=== PATIENT | male | born 1945 | race Caucasian/White ===

== ENCOUNTER 2017-02-23 10:59 | Inpatient (IN) | payer OTHER ==
[2017-02-23] MEDS ORDERED: TYLENOL 325 MG TAB PO PRN (11:44)
[2017-02-23] MEDS ORDERED: ULTRAM PO PRN (11:44)
[2017-02-23] MEDS ORDERED: ZOFRAN TAB 4 MG SL PRN (11:44)
[2017-02-23] MEDS ORDERED: VISTARIL PO PRN (11:44)
[2017-02-23 12:06] LABS: BASOPHILS % (AUTO) 0.7 % (0.2-1.0); EOSINOPHILS # (AUTO) 0.1 x10^3/uL (0.0-0.2); EOSINOPHILS % (AUTO) 1.2 % (0.9-2.9); HEMATOCRIT 42.7 % (42.0-54.0); HEMOGLOBIN 14.3 g/dL (13.5-18.0); LYMPHOCYTES # (AUTO) 1.5 X10^3/uL (1.3-2.9); LYMPHOCYTES % (AUTO) 22.5 % (21.0-51.0); MEAN CORPUSCULAR HEMOGLOBIN 29.5 pg (27.0-34.0); MEAN CORPUSCULAR HGB CONC 33.5 g/dL (33.0-35.0); MEAN CORPUSCULAR VOLUME 88.2 fL (80.0-100.0); MEAN PLATELET VOLUME 9.7 fL (7.4-11.0); MONOCYTES # (AUTO) 0.7 x10^3/uL (0.3-0.8); NEUTROPHILS # (AUTO) 4.4 x10^3/uL (2.2-4.8); NEUTROPHILS % (AUTO) 64.6 % (42.0-75.0); PLATELET COUNT 143 X10^3/uL (150.0-450.0); RED BLOOD COUNT 4.83 X10^6/uL (4.7-6.0); RED CELL DISTRIBUTION WIDTH 13.4 % (11.6-16.5); WHITE BLOOD COUNT 6.8 X10^3/uL (3.6-10.0)
[2017-02-23 12:15] LABS: APPEARANCE,URINE CLEAR (CLEAR); COLOR,URINE YELLOW (YELLOW)
--- NOTE | 2017-02-23 12:15 | RAD ---
Indication: Shortness of breath . Exam: PA and lateral Comparison: None. Findings: The heart is normal. The pulmonary vessels are normal. There are postop changes along the m ediastinum and sternum. The lungs are hypoinflated with mild asymmetric elevation of the left hemidia phragm . There is gaseous distention of the bowel under the diaphragm. No effusion is seen. There are degenerative changes in the spine with several compression deformities along the lower thoracic roma on. Impression: Status post CABG surgery. Hypoinflation with asymmetric elevation of the left hemidiaphragm and mild discoid atelectasis or sca rring along the lung bases . Focal gaseous distention of the bowel along the left hemidiaphragm. Suggest a follow-up KUB, if indic ated clinically Reported By:
[2017-02-23 12:16] LABS: BILIRUBIN,URINE NEGATIVE (NEGATIVE); BLOOD/HEMOGLOBIN,URINE NEGATIVE (NEGATIVE); GLUCOSE, URINE 4+ (NEGATIVE); KETONES,URINE NEGATIVE (NEGATIVE); NITRITES,URINE NEGATIVE (NEGATIVE); PROTEIN,URINE NEGATIVE (NEGATIVE)
[2017-02-23 12:17] LABS: LEUKOCYTE ESTERASE ,URINE NEGATIVE (NEGATIVE); SERUM ACETONE NEGATIVE (NEGATIVE); UROBILINOGEN,URINE NORMAL (NORMAL)
[2017-02-23 12:21] LABS: BACTERIA,URINE NEGATIVE /HPF (NEGATIVE); RBC,URINE NONE SEEN /HPF (NEGATIVE); SQUAMOUS EPITHELIAL CELL,UR NEGATIVE /HPF (NEGATIVE)
[2017-02-23 12:44] LABS: ALANINE AMINOTRANSFERASE 22 Units/L (12-78); ALBUMIN 3.5 g/dL (3.4-5.0); ALKALINE PHOSPHATASE 99 Units/L (46-116); ASPARTATE AMINO TRANSFERASE 13 Units/L (15-37); BLOOD UREA NITROGEN 13 mg/dL (7-18); CALCIUM 9.4 mg/dL (8.5-10.1); CHLORIDE 93 mmol/L (98-107); CKMB % 8.8 % (<4); CREATINE KINASE 67 Units/L (39-308); CREATININE 0.88 mg/dL (0.70-1.30); SODIUM 129 mmol/L (136-145); TROPONIN I < 0.02 ng/mL (0-1.5); eGFR BLACK RACES > 60 (>60); eGFR NON BLACK RACES > 60 (>60)
[2017-02-23 12:47] LABS: COR NA(FOR HYPERGLY) 141 mmol/L (136-145)
[2017-02-23 12:49] LABS: CREATINE KINASE MB 5.9 ng/mL (0-4.0)
[2017-02-23] MEDS: NS 1000 ML 1,000 ML IV SCH ×2 (13:21→19:51)
[2017-02-23] MEDS: HumuLIN R SUBCUT PRN ×3 (13:22→21:21)
[2017-02-23 16:28] LABS: CRYPTOSPORIDIUM PARVUM ANTIGEN NEGATIVE (NEGATIVE); GIARDIA LAMBLIA ANTIGEN NEGATIVE (NEGATIVE); STOOL FOR WBC NEGATIVE (NEGATIVE)
[2017-02-23] MEDS: ZITHROMAX TAB 250 MG PO SCH (17:26)
[2017-02-24] MEDS: NS 1000 ML 1,000 ML IV SCH ×3 (04:27→19:35)
[2017-02-24] MEDS: HumuLIN R SUBCUT PRN ×4 (06:04→21:32)
[2017-02-24 06:21] LABS: BLOOD UREA NITROGEN 14 mg/dL (7-18); CALCIUM 8.3 mg/dL (8.5-10.1); CARBON DIOXIDE 28.6 mmol/L (21-32); CHLORIDE 103 mmol/L (98-107); COR NA(FOR HYPERGLY) 141 mmol/L (136-145); CREATININE 0.65 mg/dL (0.70-1.30); SODIUM 137 mmol/L (136-145); eGFR BLACK RACES > 60 (>60); eGFR NON BLACK RACES > 60 (>60)
[2017-02-24 07:03] LABS: ABG ALLEN TEST POS; ABG BASE EXCESS 4.3 mmol/L (-2.0-2.0); ABG HCO3 29.8 mmol/L (22-26)
[2017-02-24] MEDS: ZITHROMAX TAB 250 MG PO SCH (08:10)
[2017-02-24] MEDS ORDERED: FLUVIRIN IM ONE ×2 (09:43→14:52)
[2017-02-24 09:57] VITALS: BMI 20.7
--- NOTE | 2017-02-24 14:49 | DR.H&P ---
H&P - History & Physical for Day of: H&P Date: 02/23/17 - Chief Complaint Chief Complaint: WEAKNESS, DIARRHEA, POOR APPETITE, ELEVATED BLOOD SUGAR - Allergies Allergies/Adverse Reactions: Allergies Allergy/AdvReac Type Severity Reaction Status Date / Time celecoxib [From Celebrex] Allergy Verified 02/23/17 12:10 - History of Present Illness History of Present Illness: patient is a 71-year-old white male who was a direct admit from Dr. Tesfaye's [place] office when he presented with complaints of generalized weakness, elevated glucose and GI symptoms including nausea and diarrhea for several days. Patient has a past medical history of COPD, high blood pressure, and osteoarthritis. Plan to consult case management for assisted living placement after resolution of acute illness. Plan to resume patient's home medications. - Past Medical History Past Medical History: Arthritis, Coronary Artery Disease, Diabetes, Hypertension - Past Surgical History Surgical History: Appendectomy - Family History Family Medical History: PR, Coronary Artery Disease, Hypertension - Social History Does patient currently use any type of tobacco product: No Have you used tobacco products in the last 12 months: No Type of Tobacco Use: None Does any household member use tobacco: No Alcohol Use: None Drug Use: None - Medications Home Medications: No Known Home Medications See Protocol XX PRN PRN 02/23/17 [History Confirmed ] - Review of Systems Constitutional: Chills, Weakness Eyes: No Symptoms Reported ENT: No Symptoms Reported Respiratory: Cough Cardiovascular: No Symptoms Reported Gastrointestinal: Nausea, Abdominal Pain Genitourinary: No Symptoms Reported Musculoskeletal: Back Pain, Leg Pain Skin: No Symptoms Reported Neurological: Weakness - Physical Exam Vital Signs: Temperature 97.1 F Pulse Rate [Bilateral Radial] 75 Respiratory Rate 17 Blood Pressure [Left Arm] 114/72 O2 Sat by Pulse Oximetry 95 Oriented: Normal Eyes: Normal Ear: Normal Nose: Normal Throat: Normal Respiratory: RLL Exp. Wheeze, LLL Exp. Wheeze Cardiovascular: Normal : Normal Auscultation: Bowel Sounds: Normal Palpation: Normal Tenderness: Normal Skin: Decreased Turgur Musculoskeletal: Back:Lumbar Psychiatric: Normal Mood Description: Calm Speech Pattern: Clear, Appropriate - Assessment/Plan (1) Weakness generalized Status: Acute Plan: ADMIT, BLOOD AND URINE CULTURES. IV HYDRATION, ADMISSION LABS CBC CMP. BLOOD SUGAR CONTROL. BP MONITORING, OBTAIN HOME MEDICATION LIST. CASE MANAGEMENT CONSULT (2) COPD (chronic obstructive pulmonary disease) Status: Acute (3) Diabetes Status: Acute (4) Diarrhea Status: Acute (5) Hyperglycemia Status: Acute
--- NOTE | 2017-02-24 14:54 | PCM.PROG ---
Progress Note - Progress Note for Day of Date: 02/24/17 - Subjective Subjective: patient is a 71-year-old white male who was admitted one day ago with acute weakness and GI illness. Patient had positive stool cultures for Campylobacter. Patient is currently on Zithromax antibiotics. Patient also was noted to have elevated glucose levels which have gradually improved. Patient is being covered with sliding scale insulin as well as gentle hydration. We will consult respiratory due to patient's lower expiratory wheezes. We will continue to monitor blood pressure, repeat a.m. labs and chest x-ray. - Past Medical Family Social History Past Med/Fam/Surg Hx: No changes since H&P Allergies: Allergies celecoxib [From Celebrex] Allergy (Verified 02/23/17 12:10) - Review of Systems ROS: No change since H&P - Vital Signs and I&O's Vital Signs: Temperature 97.1 F Pulse Rate [Bilateral Radial] 72 Respiratory Rate 15 Blood Pressure [Left Arm] 172/78 O2 Sat by Pulse Oximetry 94 Intake and Output: Intake & Output 02/22/17 02/23/17 02/24/17 02/25/17 11:59 11:59 11:59 11:59 Intake Total 2800 1400 Output Total 1900 425 Balance 900 975 - Physical Exam Oriented: Normal Eyes: Normal Ear: Normal Nose: Normal Throat: Normal Respiratory: Diminished, Wheezes Cardiovascular: Normal : Normal Auscultation: Bowel Sounds: Normal Tenderness: Normal Skin: Decreased Turgur Musculoskeletal: Back:Lumbar Psychiatric: Normal Mood Description: Calm Speech Pattern: Clear, Appropriate - Laboratory and Diagnostics Result Diagrams: 02/23/17 11:15 02/24/17 04:55 Labs: 02/23/17 15:31 Stool Stool Culture - Preliminary Campylobacter Species 02/23/17 15:31 Stool - Final 02/23/17 11:15 Urine,Clean Catch Urine Culture - Preliminary Laboratory WBC 6.8 X10^3/uL (3.6-10.0) 02/23/17 11:15 RBC 4.83 X10^6/uL (4.7-6.0) 02/23/17 11:15 Hgb 14.3 g/dL (13.5-18.0) 02/23/17 11:15 Hct 42.7 % (42.0-54.0) 02/23/17 11:15 MCV 88.2 fL (80.0-100.0) 02/23/17 11:15 MCH 29.5 pg (27.0-34.0) 02/23/17 11:15 MCHC 33.5 g/dL (33.0-35.0) 02/23/17 11:15 RDW 13.4 % (11.6-16.5) 02/23/17 11:15 Plt Count 143 X10^3/uL (150.0-450.0) L 02/23/17 11:15 MPV 9.7 fL (7.4-11.0) 02/23/17 11:15 Neut % 64.6 % (42.0-75.0) 02/23/17 11:15 Lymph % 22.5 % (21.0-51.0) 02/23/17 11:15 [place] % 11.0 % (0.0-13.0) 02/23/17 11:15 Eos % 1.2 % (0.9-2.9) 02/23/17 11:15 Baso % 0.7 % (0.2-1.0) 02/23/17 11:15 Neut # 4.4 x10^3/uL (2.2-4.8) 02/23/17 11:15 Lymph # 1.5 X10^3/uL (1.3-2.9) 02/23/17 11:15 [place] # 0.7 x10^3/uL (0.3-0.8) 02/23/17 11:15 Eos # 0.1 x10^3/uL (0.0-0.2) 02/23/17 11:15 Baso # 0.0 X10^3/uL (0.0-0.1) 02/23/17 11:15 Absolute Nucleated RBC 0.0 /100WBC 02/23/17 11:15 Sample Site Rrad 02/24/17 06:41 ABG pH 7.410 (7.35-7.45) 02/24/17 06:41 ABG pCO2 47.0 mmHg (35.0-45.0) H 02/24/17 06:41 ABG pO2 71.0 mmHg (80.0-100.0) L 02/24/17 06:41 ABG HCO3 29.8 mmol/L (22-26) H 02/24/17 06:41 ABG O2 Saturation 94.0 % (90-100) 02/24/17 06:41 ABG Base Excess 4.3 mmol/L (-2.0-2.0) H 02/24/17 06:41 Cesario Test Pos 02/24/17 06:41 A-a Gradient 20.0 mmHg 02/24/17 06:41 FiO2 21.000 02/24/17 06:41 Blood Gas Comments [place] abg well-mtf 02/24/17 06:41 Sodium 137 mmol/L (136-145) 02/24/17 04:55 Corrected Sodium 141 mmol/L (136-145) 02/24/17 04:55 Potassium 3.5 mmol/L (3.5-5.1) 02/24/17 04:55 Chloride 103 mmol/L (98-107) 02/24/17 04:55 Carbon Dioxide 28.6 mmol/L (21-32) 02/24/17 04:55 BUN 14 mg/dL (7-18) 02/24/17 04:55 Creatinine 0.65 mg/dL (0.70-1.30) L 02/24/17 04:55 Est GFR (MDRD) Af Amer > 60 (>60) 02/24/17 04:55 Est GFR (MDRD) Non-Af > 60 (>60) 02/24/17 04:55 Glucose 268 mg/dL (65-99) H 02/24/17 04:55 POC Glucose (mg/dL) 335 mg/dL (65-99) H 02/24/17 11:47 Calcium 8.3 mg/dL (8.5-10.1) L 02/24/17 04:55 Corrected Calcium TNP 02/23/17 11:15 Total Bilirubin 0.40 mg/dL (0.2-1.0) 02/23/17 11:15 AST 13 Units/L (15-37) L 02/23/17 11:15 ALT 22 Units/L (12-78) 02/23/17 11:15 Alkaline Phosphatase 99 Units/L (46-116) 02/23/17 11:15 Creatine Kinase 67 Units/L (39-308) 02/23/17 11:15 CK-MB (CK-2) 5.9 ng/mL (0-4.0) H* 02/23/17 11:15 CK/CKMB % Calc 8.8 % (<4) 02/23/17 11:15 Troponin I < 0.02 ng/mL (0-1.5) 02/23/17 11:15 Total Protein 7.0 g/dL (6.4-8.2) 02/23/17 11:15 Albumin 3.5 g/dL (3.4-5.0) 02/23/17 11:15 Globulin 3.5 g/dL (2.5-4.5) 02/23/17 11:15 Albumin/Globulin Ratio 1.0 Ratio (1.1-2.1) L 02/23/17 11:15 Specimen Type Clean catch urine 02/23/17 11:15 Urine Color Yellow (YELLOW) 02/23/17 11:15 Urine Appearance Clear (CLEAR) 02/23/17 11:15 Urine pH 5.0 (5.0 - 8.0) 02/23/17 11:15 Ur Specific [place] 1.010 (1.000-1.030) 02/23/17 11:15 Urine Protein Negative (NEGATIVE) 02/23/17 11:15 Urine Glucose (UA) 4+ (NEGATIVE) 02/23/17 11:15 Urine Ketones Negative (NEGATIVE) 02/23/17 11:15 Urine Occult Blood Negative (NEGATIVE) 02/23/17 11:15 Urine Nitrite Negative (NEGATIVE) 02/23/17 11:15 Urine Bilirubin Negative (NEGATIVE) 02/23/17 11:15 Urine Urobilinogen Normal (NORMAL) 02/23/17 11:15 Ur Leukocyte Esterase Negative (NEGATIVE) 02/23/17 11:15 Urine RBC None seen /HPF (NEGATIVE) 02/23/17 11:15 Urine WBC None seen /HPF (NEGATIVE) 02/23/17 11:15 Ur Squamous Epith Cells Negative /HPF (NEGATIVE) 02/23/17 11:15 Urine Bacteria Negative /HPF (NEGATIVE) 02/23/17 11:15 Ur Culture Indicated? Yes/culture set up 02/23/17 11:15 Stool Description 5g,brown,formed 02/23/17 15:31 Stl Occult Blood (IFOB) Negative (NEGATIVE) 02/23/17 15:31 Stool for White Cells Negative (NEGATIVE) 02/23/17 15:31 Acetone, Semi-Quant Negative (NEGATIVE) 02/23/17 11:15 Cryptosporid parvum Ag Negative (NEGATIVE) 02/23/17 15:31 E. histolytica Antigen Negative (NEGATIVE) 02/23/17 15:31 Giardia lamblia Ag Negative (NEGATIVE) 02/23/17 15:31 - Plan (1) Weakness generalized Status: Acute Plan: BLOOD AND URINE CULTURES PENDING. IV HYDRATION, ADMISSION LABS CBC CMP. BLOOD SUGAR CONTROL. BP MONITORING, OBTAIN HOME MEDICATION LIST. CASE MANAGEMENT CONSULT (2) COPD (chronic obstructive pulmonary disease) Status: Acute (3) Diabetes Status: Acute (4) Diarrhea Status: Acute Qualifiers: Diarrhea type: infectious Qualified Code(s): A09 - Infectious gastroenteritis and colitis, unspecified Plan: ZITHROMAX (5) Hyperglycemia Status: Acute (6) UTI (urinary tract infection) Status: Acute Plan: rocephin iv, culture pending
[2017-02-24] MEDS: ROCEPHIN VIAL 1 GM 1 GM in NS 100 ML IV 100 ML IV SCH (15:41)
[2017-02-25] MEDS: HumuLIN R SUBCUT PRN ×4 (00:08→21:17)
[2017-02-25 06:12] LABS: BASOPHILS # (AUTO) 0.1 X10^3/uL (0.0-0.1); BASOPHILS % (AUTO) 0.8 % (0.2-1.0); EOSINOPHILS # (AUTO) 0.1 x10^3/uL (0.0-0.2); EOSINOPHILS % (AUTO) 1.7 % (0.9-2.9); HEMATOCRIT 37.1 % (42.0-54.0); HEMOGLOBIN 12.7 g/dL (13.5-18.0); LYMPHOCYTES # (AUTO) 2.5 X10^3/uL (1.3-2.9); LYMPHOCYTES % (AUTO) 35.6 % (21.0-51.0); MEAN CORPUSCULAR HEMOGLOBIN 29.5 pg (27.0-34.0); MEAN CORPUSCULAR HGB CONC 34.3 g/dL (33.0-35.0); MEAN CORPUSCULAR VOLUME 85.9 fL (80.0-100.0); MEAN PLATELET VOLUME 9.1 fL (7.4-11.0); MONOCYTES # (AUTO) 0.6 x10^3/uL (0.3-0.8); NEUTROPHILS # (AUTO) 3.8 x10^3/uL (2.2-4.8); NEUTROPHILS % (AUTO) 52.9 % (42.0-75.0); PLATELET COUNT 132 X10^3/uL (150.0-450.0); RED BLOOD COUNT 4.32 X10^6/uL (4.7-6.0); RED CELL DISTRIBUTION WIDTH 13.2 % (11.6-16.5); WHITE BLOOD COUNT 7.1 X10^3/uL (3.6-10.0)
[2017-02-25 06:39] LABS: ALANINE AMINOTRANSFERASE 21 Units/L (12-78); ALBUMIN 2.6 g/dL (3.4-5.0); ALKALINE PHOSPHATASE 67 Units/L (46-116); ASPARTATE AMINO TRANSFERASE 14 Units/L (15-37); BLOOD UREA NITROGEN 11 mg/dL (7-18); CALCIUM 8.4 mg/dL (8.5-10.1); CHLORIDE 108 mmol/L (98-107); COR CA(FOR HYPOALB) 9.5 mg/dL (8.5-10.1); CREATININE 0.52 mg/dL (0.70-1.30); SODIUM 142 mmol/L (136-145); TOTAL PROTEIN 5.5 g/dL (6.4-8.2); eGFR BLACK RACES > 60 (>60); eGFR NON BLACK RACES > 60 (>60)
[2017-02-25] MEDS: NS 1000 ML 1,000 ML IV SCH ×3 (07:03→21:06)
[2017-02-25] MEDS ORDERED: K-LYTE EFFERVESCENT PO PRN (07:05)
[2017-02-25] MEDS ORDERED: POTASSIUM CHL 40 MEQ/NS 0.45% 500 ML IV PRN (07:05)
[2017-02-25] MEDS ORDERED: POTASSIUM CHL 60 MEQ/NS 0.45% 500 ML IV PRN (07:05)
[2017-02-25] MEDS ORDERED: K-RIDER 10 MEQ/NS 100 ML 10 MEQ/100 ML BAG IV PRN (07:05)
[2017-02-25] MEDS ORDERED: MAGNESIUM SULFATE 1 GM/100 mL PREMIX 1 GM/100 ML BAG IV PRN (07:05)
[2017-02-25] MEDS ORDERED: POTASSIUM CHLORIDE LIQ 20 MEQ UDC PO PRN (07:05)
--- NOTE | 2017-02-25 07:22 | RAD ---
HISTORY: Shortness of breath Study: Single view of the chest. Comparison: 02/23/2017 Findings: The cardiomediastinal silhouette is normal. New, small right apical pneumothorax. Osseous structures demonstrate no acute abnormality. Chronic elevation of left hemidiaphragm IMPRESSION: 1. New a small apical right pneumothorax. Reported By:
[2017-02-25] MEDS: ROCEPHIN VIAL 1 GM 1 GM in NS 100 ML IV 100 ML IV SCH (09:20)
[2017-02-25] MEDS: ZITHROMAX TAB 250 MG PO SCH (09:20)
--- NOTE | 2017-02-25 15:15 | CT ---
CT CHEST WITH IV CONTRAST HISTORY: Concern for right-sided pneumonia Comparison: Chest x-ray 02/25/2017 Technique: Multiple axial images of the chest were obtained from the thoracic inlet to the upper abdo men after the administration of IV contrast.Dose reduction techniques including Automated Exposure Co ntrol (AEC) and adjustment of mA and kV were utlized. Findings: The heart is normal in size. No pericardial effusion. Ascending aorta measures 4.3 cm No suspicious m ediastinal or axillary lymph nodes. Although not optimized to detect pulmonary embolism, no large leroy tral pulmonary emboli are seen. No focal consolidations, or pneumothorax. Trace left pleural effusion. Streaky atelectasis involving the bilateral lung bases. Chronic elevation of the left hemidiaphragm Airways are patent. No suspicio us pulmonary nodules or masses. Images of the upper abdomen demonstrate diffuse mesenteric edema with edema particular focus in the r egion of the pancreas. Compression deformities of T11 and T12. Correlate with symptoms. There is some sclerosis involving th en vertebral bodies. IMPRESSION: 1. No acute cardiopulmonary abnormality. The finding on recent chest x-ray was likely secondary to o verlapping structures. 2. No definite pneumonia. 3. Aneurysmal dilatation of the ascending aorta. 4. Diffuse mesenteric edema more focally in the region of the pancreas. Correlate with lipase levels. 5. Compression deformities of the thoracic spine as above. Correlate with symptoms as acuity cannot b e ruled out. Reported By:
[2017-02-25] MEDS: MAG-OX TAB PO PRN (16:23)
[2017-02-25] MEDS ORDERED: CATAPRES TAB 0.1 MG PO ONE (21:26)
[2017-02-26] MEDS: NS 1000 ML 1,000 ML IV SCH ×4 (05:36→20:20)
[2017-02-26] MEDS: HumuLIN R SUBCUT PRN ×4 (06:35→21:10)
[2017-02-26 08:28] LABS: BASOPHILS % (AUTO) 0.4 % (0.2-1.0); EOSINOPHILS # (AUTO) 0.1 x10^3/uL (0.0-0.2); EOSINOPHILS % (AUTO) 1.7 % (0.9-2.9); HEMATOCRIT 37.5 % (42.0-54.0); HEMOGLOBIN 12.8 g/dL (13.5-18.0); LYMPHOCYTES # (AUTO) 1.5 X10^3/uL (1.3-2.9); LYMPHOCYTES % (AUTO) 26.2 % (21.0-51.0); MEAN CORPUSCULAR HEMOGLOBIN 29.8 pg (27.0-34.0); MEAN CORPUSCULAR HGB CONC 34.2 g/dL (33.0-35.0); MEAN CORPUSCULAR VOLUME 87.2 fL (80.0-100.0); MEAN PLATELET VOLUME 9.8 fL (7.4-11.0); MONOCYTES # (AUTO) 0.4 x10^3/uL (0.3-0.8); MONOCYTES % (AUTO) 7.9 % (0.0-13.0); NEUTROPHILS # (AUTO) 3.6 x10^3/uL (2.2-4.8); NEUTROPHILS % (AUTO) 63.8 % (42.0-75.0); PLATELET COUNT 127 X10^3/uL (150.0-450.0); RED CELL DISTRIBUTION WIDTH 13.3 % (11.6-16.5); WHITE BLOOD COUNT 5.6 X10^3/uL (3.6-10.0)
[2017-02-26 08:33] LABS: ALANINE AMINOTRANSFERASE 23 Units/L (12-78); ALBUMIN 2.6 g/dL (3.4-5.0); ALKALINE PHOSPHATASE 84 Units/L (46-116); ASPARTATE AMINO TRANSFERASE 19 Units/L (15-37); BLOOD UREA NITROGEN 11 mg/dL (7-18); CALCIUM 8.5 mg/dL (8.5-10.1); CARBON DIOXIDE 28.7 mmol/L (21-32); CHLORIDE 101 mmol/L (98-107); COR CA(FOR HYPOALB) 9.6 mg/dL (8.5-10.1); COR NA(FOR HYPERGLY) 143 mmol/L (136-145); CREATININE 0.61 mg/dL (0.70-1.30); SODIUM 135 mmol/L (136-145); TOTAL PROTEIN 5.6 g/dL (6.4-8.2); eGFR BLACK RACES > 60 (>60); eGFR NON BLACK RACES > 60 (>60)
[2017-02-26] MEDS: ROCEPHIN VIAL 1 GM 1 GM in NS 100 ML IV 100 ML IV SCH (09:13)
[2017-02-26] MEDS: ZITHROMAX TAB 250 MG PO SCH (09:13)
[2017-02-26] MEDS: MAG-OX TAB PO PRN (12:21)
[2017-02-26] MEDS: ZESTRIL TAB 10 MG PO SCH (19:07)
[2017-02-26] MEDS: AMARYL TAB 4 MG PO SCH (19:07)
[2017-02-26] MEDS: SNACK - Diabetic Appropriate PO SCH (20:06)
[2017-02-27] MEDS: NS 1000 ML 1,000 ML IV SCH ×4 (05:12→22:25)
[2017-02-27] MEDS: HumuLIN R SUBCUT PRN ×4 (05:45→21:51)
[2017-02-27 06:23] LABS: BASOPHILS # (AUTO) 0.1 X10^3/uL (0.0-0.1); BASOPHILS % (AUTO) 0.9 % (0.2-1.0); EOSINOPHILS # (AUTO) 0.1 x10^3/uL (0.0-0.2); HEMATOCRIT 39.5 % (42.0-54.0); HEMOGLOBIN 13.5 g/dL (13.5-18.0); LYMPHOCYTES # (AUTO) 1.7 X10^3/uL (1.3-2.9); LYMPHOCYTES % (AUTO) 28.5 % (21.0-51.0); MEAN CORPUSCULAR HEMOGLOBIN 29.6 pg (27.0-34.0); MEAN CORPUSCULAR HGB CONC 34.1 g/dL (33.0-35.0); MEAN CORPUSCULAR VOLUME 86.8 fL (80.0-100.0); MEAN PLATELET VOLUME 9.4 fL (7.4-11.0); MONOCYTES # (AUTO) 0.5 x10^3/uL (0.3-0.8); MONOCYTES % (AUTO) 8.1 % (0.0-13.0); NEUTROPHILS # (AUTO) 3.6 x10^3/uL (2.2-4.8); NEUTROPHILS % (AUTO) 60.5 % (42.0-75.0); PLATELET COUNT 130 X10^3/uL (150.0-450.0); RED BLOOD COUNT 4.55 X10^6/uL (4.7-6.0); RED CELL DISTRIBUTION WIDTH 13.2 % (11.6-16.5)
[2017-02-27 06:35] LABS: ALANINE AMINOTRANSFERASE 22 Units/L (12-78); ALBUMIN 2.5 g/dL (3.4-5.0); ALKALINE PHOSPHATASE 75 Units/L (46-116); ASPARTATE AMINO TRANSFERASE 16 Units/L (15-37); BLOOD UREA NITROGEN 12 mg/dL (7-18); CALCIUM 8.5 mg/dL (8.5-10.1); CARBON DIOXIDE 30.6 mmol/L (21-32); CHLORIDE 102 mmol/L (98-107); COR CA(FOR HYPOALB) 9.7 mg/dL (8.5-10.1); COR NA(FOR HYPERGLY) 143 mmol/L (136-145); CREATININE 0.55 mg/dL (0.70-1.30); MAGNESIUM 1.6 mg/dL (1.7-2.9); SODIUM 138 mmol/L (136-145); TOTAL PROTEIN 5.7 g/dL (6.4-8.2); eGFR BLACK RACES > 60 (>60); eGFR NON BLACK RACES > 60 (>60)
[2017-02-27] MEDS: ZITHROMAX TAB 250 MG PO SCH (08:18)
[2017-02-27] MEDS: ZESTRIL TAB 10 MG PO SCH (08:19)
[2017-02-27] MEDS: ROCEPHIN VIAL 1 GM 1 GM in NS 100 ML IV 100 ML IV SCH (08:19)
[2017-02-27] MEDS ORDERED: GLUCOPHAGE ONE ×2 (08:20→16:56)
--- NOTE | 2017-02-27 13:39 | PCM.PROG ---
Progress Note - Progress Note for Day of Date: 02/27/17 - Subjective Subjective: patient is a 71-year-old white male who was admitted one day ago with acute weakness and GI illness. Patient had positive stool cultures for Campylobacter. Patient is currently on Zithromax antibiotics. patient states diarrhea has improved no bowel movements today. Patient also was noted to have elevated glucose levels which have gradually improved. Patient is being treated with by mouth Amaryl and metformin with elevated sugars greater than 200 continued. Plan to increase dose of metformin. Consult physical therapy and case management for discussed rehabilitation placement at [facility]. - Past Medical Family Social History Past Med/Fam/Surg Hx: No changes since H&P Allergies: Allergies celecoxib [From Celebrex] Allergy (Verified 02/23/17 12:10) - Review of Systems ROS: No change since H&P - Vital Signs and I&O's Vital Signs: Temperature 97 F Pulse Rate [Bilateral Radial] 77 Pulse Rate 79 Respiratory Rate 15 Blood Pressure [Right Arm] 144/77 Blood Pressure [Left Arm] 142/94 O2 Sat by Pulse Oximetry 95 Intake and Output: Intake & Output 02/25/17 02/26/17 02/27/17 02/28/17 11:59 11:59 11:59 11:59 Intake Total 4766 5069 3466 Output Total 2725 3200 3600 Balance 2041 1869 -134 - Physical Exam Oriented: Normal Eyes: Normal Ear: Normal Nose: Normal Throat: Normal Respiratory: Diminished, Wheezes Cardiovascular: Normal : Normal Auscultation: Bowel Sounds: Normal Tenderness: Normal Skin: Decreased Turgur Musculoskeletal: Back:Lumbar Psychiatric: Normal Mood Description: Calm Speech Pattern: Clear, Appropriate, Unclear - Laboratory and Diagnostics Result Diagrams: 02/27/17 05:21 02/27/17 05:21 Labs: 02/23/17 11:52 Blood Blood Culture - Preliminary 02/23/17 11:15 Blood Blood Culture - Preliminary 02/23/17 15:31 Stool Stool Culture - Final Campylobacter Species 02/23/17 15:31 Stool - Final 02/23/17 11:15 Urine,Clean Catch Urine Culture - Final Laboratory WBC 6.0 X10^3/uL (3.6-10.0) 02/27/17 05:21 RBC 4.55 X10^6/uL (4.7-6.0) L 02/27/17 05:21 Hgb 13.5 g/dL (13.5-18.0) 02/27/17 05:21 Hct 39.5 % (42.0-54.0) L 02/27/17 05:21 MCV 86.8 fL (80.0-100.0) 02/27/17 05:21 MCH 29.6 pg (27.0-34.0) 02/27/17 05:21 MCHC 34.1 g/dL (33.0-35.0) 02/27/17 05:21 RDW 13.2 % (11.6-16.5) 02/27/17 05:21 Plt Count 130 X10^3/uL (150.0-450.0) L 02/27/17 05:21 MPV 9.4 fL (7.4-11.0) 02/27/17 05:21 Neut % 60.5 % (42.0-75.0) 02/27/17 05:21 Lymph % 28.5 % (21.0-51.0) 02/27/17 05:21 [place] % 8.1 % (0.0-13.0) 02/27/17 05:21 Eos % 2.0 % (0.9-2.9) 02/27/17 05:21 Baso % 0.9 % (0.2-1.0) 02/27/17 05:21 Neut # 3.6 x10^3/uL (2.2-4.8) 02/27/17 05:21 Lymph # 1.7 X10^3/uL (1.3-2.9) 02/27/17 05:21 [place] # 0.5 x10^3/uL (0.3-0.8) 02/27/17 05:21 Eos # 0.1 x10^3/uL (0.0-0.2) 02/27/17 05:21 Baso # 0.1 X10^3/uL (0.0-0.1) 02/27/17 05:21 Absolute Nucleated RBC 0.0 /100WBC 02/27/17 05:21 Sample Site Rrad 02/24/17 06:41 ABG pH 7.410 (7.35-7.45) 02/24/17 06:41 ABG pCO2 47.0 mmHg (35.0-45.0) H 02/24/17 06:41 ABG pO2 71.0 mmHg (80.0-100.0) L 02/24/17 06:41 ABG HCO3 29.8 mmol/L (22-26) H 02/24/17 06:41 ABG O2 Saturation 94.0 % (90-100) 02/24/17 06:41 ABG Base Excess 4.3 mmol/L (-2.0-2.0) H 02/24/17 06:41 Cesario Test Pos 02/24/17 06:41 A-a Gradient 20.0 mmHg 02/24/17 06:41 FiO2 21.000 02/24/17 06:41 Blood Gas Comments [place] abg well-mtf 02/24/17 06:41 Sodium 138 mmol/L (136-145) 02/27/17 05:21 Corrected Sodium 143 mmol/L (136-145) 02/27/17 05:21 Potassium 4.0 mmol/L (3.5-5.1) 02/27/17 05:21 Chloride 102 mmol/L (98-107) 02/27/17 05:21 Carbon Dioxide 30.6 mmol/L (21-32) 02/27/17 05:21 BUN 12 mg/dL (7-18) 02/27/17 05:21 Creatinine 0.55 mg/dL (0.70-1.30) L 02/27/17 05:21 Est GFR (MDRD) Af Amer > 60 (>60) 02/27/17 05:21 Est GFR (MDRD) Non-Af > 60 (>60) 02/27/17 05:21 Glucose 294 mg/dL (65-99) H 02/27/17 05:21 POC Glucose (mg/dL) 290 mg/dL (65-99) H 02/27/17 10:57 Calcium 8.5 mg/dL (8.5-10.1) 02/27/17 05:21 Corrected Calcium 9.7 mg/dL (8.5-10.1) 02/27/17 05:21 Magnesium 1.6 mg/dL (1.7-2.9) L 02/27/17 05:21 Total Bilirubin 0.30 mg/dL (0.2-1.0) 02/27/17 05:21 AST 16 Units/L (15-37) 02/27/17 05:21 ALT 22 Units/L (12-78) 02/27/17 05:21 Alkaline Phosphatase 75 Units/L (46-116) 02/27/17 05:21 Creatine Kinase 67 Units/L (39-308) 02/23/17 11:15 CK-MB (CK-2) 5.9 ng/mL (0-4.0) H* 02/23/17 11:15 CK/CKMB % Calc 8.8 % (<4) 02/23/17 11:15 Troponin I < 0.02 ng/mL (0-1.5) 02/23/17 11:15 Total Protein 5.7 g/dL (6.4-8.2) L 02/27/17 05:21 Albumin 2.5 g/dL (3.4-5.0) L 02/27/17 05:21 Globulin 3.2 g/dL (2.5-4.5) 02/27/17 05:21 Albumin/Globulin Ratio 0.8 Ratio (1.1-2.1) L 02/27/17 05:21 Specimen Type Clean catch urine 02/23/17 11:15 Urine Color Yellow (YELLOW) 02/23/17 11:15 Urine Appearance Clear (CLEAR) 02/23/17 11:15 Urine pH 5.0 (5.0 - 8.0) 02/23/17 11:15 Ur Specific [place] 1.010 (1.000-1.030) 02/23/17 11:15 Urine Protein Negative (NEGATIVE) 02/23/17 11:15 Urine Glucose (UA) 4+ (NEGATIVE) 02/23/17 11:15 Urine Ketones Negative (NEGATIVE) 02/23/17 11:15 Urine Occult Blood Negative (NEGATIVE) 02/23/17 11:15 Urine Nitrite Negative (NEGATIVE) 02/23/17 11:15 Urine Bilirubin Negative (NEGATIVE) 02/23/17 11:15 Urine Urobilinogen Normal (NORMAL) 02/23/17 11:15 Ur Leukocyte Esterase Negative (NEGATIVE) 02/23/17 11:15 Urine RBC None seen /HPF (NEGATIVE) 02/23/17 11:15 Urine WBC None seen /HPF (NEGATIVE) 02/23/17 11:15 Ur Squamous Epith Cells Negative /HPF (NEGATIVE) 02/23/17 11:15 Urine Bacteria Negative /HPF (NEGATIVE) 02/23/17 11:15 Ur Culture Indicated? Yes/culture set up 02/23/17 11:15 Stool Description 5g,brown,formed 02/23/17 15:31 Stl Occult Blood (IFOB) Negative (NEGATIVE) 02/23/17 15:31 Stool for White Cells Negative (NEGATIVE) 02/23/17 15:31 Acetone, Semi-Quant Negative (NEGATIVE) 02/23/17 11:15 Cryptosporid parvum Ag Negative (NEGATIVE) 02/23/17 15:31 E. histolytica Antigen Negative (NEGATIVE) 02/23/17 15:31 Giardia lamblia Ag Negative (NEGATIVE) 02/23/17 15:31 - Plan (1) Weakness generalized Status: Acute Plan: BLOOD AND URINE CULTURES COLLECTED ON ADMISSION. IV HYDRATION, ADMISSION LABS CBC CMP. BLOOD SUGAR CONTROL. BP MONITORING, OBTAIN HOME MEDICATION LIST. CASE MANAGEMENT CONSULT (2) COPD (chronic obstructive pulmonary disease) Status: Chronic (3) Diabetes Status: Chronic Plan: A1C, METFORMIN AMARYL (4) Diarrhea Status: Acute Qualifiers: Diarrhea type: infectious Qualified Code(s): A09 - Infectious gastroenteritis and colitis, unspecified Plan: ZITHROMAX (5) Hyperglycemia Status: Acute (6) UTI (urinary tract infection) Status: Acute Plan: rocephin iv, culture pending
[2017-02-27] MEDS: MAG-OX TAB PO PRN (14:02)
[2017-02-27] MEDS: GLUCOPHAGE PO SCH (16:54)
[2017-02-27] MEDS: AMARYL TAB 4 MG PO SCH (16:57)
[2017-02-27] MEDS ORDERED: GLUCOPHAGE PO SCH (17:00)
[2017-02-27] MEDS ORDERED: MILK OF MAGNESIA PO PRN (19:28)
[2017-02-27] MEDS ORDERED: COLACE CAP 100 MG PO PRN (19:28)
[2017-02-27] MEDS: SNACK - Diabetic Appropriate PO SCH (21:40)
[2017-02-28] MEDS ORDERED: GLUCOPHAGE ONE ×2 (06:17→16:35)
[2017-02-28 06:18] LABS: BASOPHILS # (AUTO) 0.1 X10^3/uL (0.0-0.1); BASOPHILS % (AUTO) 0.9 % (0.2-1.0); EOSINOPHILS # (AUTO) 0.1 x10^3/uL (0.0-0.2); EOSINOPHILS % (AUTO) 1.7 % (0.9-2.9); HEMATOCRIT 38.2 % (42.0-54.0); LYMPHOCYTES # (AUTO) 1.5 X10^3/uL (1.3-2.9); MEAN CORPUSCULAR HEMOGLOBIN 29.9 pg (27.0-34.0); MEAN CORPUSCULAR HGB CONC 34.1 g/dL (33.0-35.0); MEAN CORPUSCULAR VOLUME 87.7 fL (80.0-100.0); MEAN PLATELET VOLUME 9.2 fL (7.4-11.0); MONOCYTES # (AUTO) 0.5 x10^3/uL (0.3-0.8); MONOCYTES % (AUTO) 8.2 % (0.0-13.0); NEUTROPHILS # (AUTO) 3.6 x10^3/uL (2.2-4.8); NEUTROPHILS % (AUTO) 62.2 % (42.0-75.0); PLATELET COUNT 142 X10^3/uL (150.0-450.0); RED BLOOD COUNT 4.35 X10^6/uL (4.7-6.0); RED CELL DISTRIBUTION WIDTH 13.4 % (11.6-16.5); WHITE BLOOD COUNT 5.7 X10^3/uL (3.6-10.0)
[2017-02-28] MEDS: NS 1000 ML 1,000 ML IV SCH (06:19)
[2017-02-28] MEDS: HumuLIN R SUBCUT PRN ×2 (06:20→11:57)
[2017-02-28] MEDS: GLUCOPHAGE PO SCH ×2 (06:20→16:39)
--- NOTE | 2017-02-28 06:37 | RAD ---
Examination: Portable AP chest History: Cough Comparison 02/25/2017 Findings: Stable heart size, persistent widening of the upper mediastinum and left diaphragm elevatio n. No definite pneumothorax or pulmonary consolidation. Findings of sternotomy again noted. Impression: No new acute abnormality. No definite pneumothorax, pneumonia or large pleural effusion. Stable elevation left hemidiaphragm. Is Reported By:
[2017-02-28 06:54] LABS: ALANINE AMINOTRANSFERASE 25 Units/L (12-78); ALBUMIN 2.4 g/dL (3.4-5.0); ALKALINE PHOSPHATASE 72 Units/L (46-116); AMYLASE 47 Units/L (25-115); ASPARTATE AMINO TRANSFERASE 17 Units/L (15-37); BLOOD UREA NITROGEN 13 mg/dL (7-18); CALCIUM 8.5 mg/dL (8.5-10.1); CARBON DIOXIDE 29.6 mmol/L (21-32); CHLORIDE 104 mmol/L (98-107); COR CA(FOR HYPOALB) 9.8 mg/dL (8.5-10.1); COR NA(FOR HYPERGLY) 144 mmol/L (136-145); CREATININE 0.64 mg/dL (0.70-1.30); LIPASE 157 Units/L (73-393); MAGNESIUM 1.7 mg/dL (1.7-2.9); SODIUM 139 mmol/L (136-145); TOTAL PROTEIN 5.6 g/dL (6.4-8.2); eGFR BLACK RACES > 60 (>60); eGFR NON BLACK RACES > 60 (>60)
[2017-02-28] MEDS: ROCEPHIN VIAL 1 GM 1 GM in NS 100 ML IV 100 ML IV SCH (09:01)
[2017-02-28] MEDS: ZESTRIL TAB 10 MG PO SCH (09:01)
[2017-02-28] MEDS: ZITHROMAX TAB 250 MG PO SCH (09:03)
[2017-02-28 12:33] VITALS: BP 136/79
[2017-02-28] MEDS ORDERED: BUTT CREAM (COMPOUND) TOP PRN (12:51)
[2017-02-28] MEDS: AMARYL TAB 4 MG PO SCH (16:39)
== END 2017-02-28 17:55 | DRG 638 ==
LOC: OBS 10:59 → UNDOADMIN 10:59 → OBS 11:01 → ICU 11:48 → MED/SURG 02-28 09:10
PROVIDERS: ADMIT Internal Medicine; ATTEND Internal Medicine
PROC: 3E0234Z Introduction of Serum, Toxoid and Vaccine into Muscle, Percutaneous Approach (ICD-10-PCS; principal; 2017-02-24)
DX: E11.65 Type 2 diabetes mellitus with hyperglycemia (principal); R60.1 Generalized edema; I95.89 Other hypotension; R53.1 Weakness; A04.5 Campylobacter enteritis; R63.0 Anorexia; J44.9 Chronic obstructive pulmonary disease, unspecified; I10 Essential (primary) hypertension; I25.10 Atherosclerotic heart disease of native coronary artery without angina pectoris; N39.0 Urinary tract infection, site not specified; R26.89 Other abnormalities of gait and mobility; Z23 Encounter for immunization
CPT/HCPCS: 36415; 36600; 71045; 71046; 71260; 80048; 80053; 81001; 82009; 82150; 82270; 82550; 82553; 82803; 82947; 83036; 83630; 83690; 83735; 84132; 84484; 85025; 87040; 87045; 87086; 87328; 87329; 87336; 87427; 87899; 90686; 93005; 93010; 94640; A4222; Q0144; J0696; J1815

== ENCOUNTER 2020-01-28 17:53 | Inpatient (IN) ==
[2020-01-28] MEDS: SNACK - Diabetic Appropriate PO SCH (21:57)
[2020-01-28] MEDS: ZOSYN VIAL 4.5 GRAMS 4.5 G in NS 100 ML IV + SPIKE MINIBAG* 100 ML IV SCH (22:09)
[2020-01-28] MEDS: NS 1000 ML 1,000 ML IV SCH (22:09)
[2020-01-28 22:13] LABS: BASOPHILS % (AUTO) 0.2 % (0.2-1.0); EOSINOPHILS # (AUTO) 0.1 x10^3/uL (0.0-0.2); EOSINOPHILS % (AUTO) 1.6 % (0.9-2.9); HEMOGLOBIN 8.6 g/dL (13.5-18.0); LYMPHOCYTES # (AUTO) 0.7 X10^3/uL (1.3-2.9); LYMPHOCYTES % (AUTO) 7.7 % (21.0-51.0); MEAN CORPUSCULAR HEMOGLOBIN 28.5 pg (27.0-34.0); MEAN PLATELET VOLUME 8.7 fL (7.4-11.0); MONOCYTES # (AUTO) 0.9 x10^3/uL (0.3-0.8); MONOCYTES % (AUTO) 9.9 % (0.0-13.0); NEUTROPHILS # (AUTO) 7.3 x10^3/uL (2.2-4.8); NEUTROPHILS % (AUTO) 80.6 % (42.0-75.0); PLATELET COUNT 92 X10^3/uL (150.0-450.0); RED BLOOD COUNT 3.03 X10^6/uL (4.7-6.0); RED CELL DISTRIBUTION WIDTH 19.1 % (11.6-16.5)
[2020-01-28 22:23] LABS: ALANINE AMINOTRANSFERASE 10 Units/L (12-78); ALBUMIN 1.2 g/dL (3.4-5.0); ALKALINE PHOSPHATASE 60 Units/L (46-116); ASPARTATE AMINO TRANSFERASE 15 Units/L (15-37); BLOOD UREA NITROGEN 24 mg/dL (7-18); CALCIUM 7.7 mg/dL (8.5-10.1); CARBON DIOXIDE 30.5 mmol/L (21-32); CHLORIDE 105 mmol/L (98-107); COR CA(FOR HYPOALB) 9.9 mg/dL (8.5-10.1); COR NA(FOR HYPERGLY) 140 mmol/L (136-145); CREATININE 1.41 mg/dL (0.70-1.30); MAGNESIUM 1.8 mg/dL (1.7-2.9); SODIUM 139 mmol/L (136-145); TOTAL PROTEIN 4.6 g/dL (6.4-8.2); eGFR NON BLACK RACES 53 (>60)
--- NOTE | 2020-01-28 23:31 | RAD ---
STUDY: FRONTAL VIEW CHESTCOMPARISON: NoneHISTORY: SOBFINDINGS:Exam is limited due to poor inspiratory effort which can result in exaggeration of the cardiac silhouette size and pulmonary vasculature. Cardiomegaly is seen with findings suggesting moderate degree of pulmonary edema. Patient is status post midline sternotomy. There appears to be airspace disease in the left lower lung zone which may represent consolidation. No pleural effusion or pneumothorax is seen. Exam is obtained in the lordotic position. Widening of the mediastinum noted measuring 13 cm in diameter.IMPRESSION:1. Cardiomegaly is seen with findings suggesting moderate degree of pulmonary edema.2. Please note that exam is limited due to poor inspiratory effort. This can result in exaggeration of the cardiac silhouette size and pulmonary vasculature.3. There is widening of the mediastinum. This may be due to the lordotic positioning and poor inspiratory effort. However, follow-up with CT angiogram chest may be obtained if this is felt to be clinically indicated. Differential diagnosis for this imaging feature should include, but is not limited to thoracic aortic aneurysm. Please note that there are no prior studies available for comparison to assess the stability of this finding.Electronically signed by: Diomedes Pulliam (Jan 28, 2020 23:29:20)
[2020-01-28 23:47] LABS: CRYPTOSPORIDIUM PARVUM ANTIGEN NEGATIVE (NEGATIVE); GIARDIA LAMBLIA ANTIGEN NEGATIVE (NEGATIVE)
[2020-01-29 00:07] LABS: BILIRUBIN,URINE NEGATIVE (NEGATIVE); BLOOD/HEMOGLOBIN,URINE 5+ (NEGATIVE); GLUCOSE, URINE NEGATIVE (NEGATIVE); KETONES,URINE NEGATIVE (NEGATIVE); LEUKOCYTE ESTERASE ,URINE 1+ (NEGATIVE); NITRITES,URINE NEGATIVE (NEGATIVE); PROTEIN,URINE 2+ (NEGATIVE); UROBILINOGEN,URINE NORMAL (NORMAL)
[2020-01-29 00:20] LABS: COLOR,URINE AMBER (YELLOW)
[2020-01-29 00:21] LABS: AMORPHOUS SEDIMENT,UR 1+ /HPF (NEGATIVE); APPEARANCE,URINE SLIGHTLY HAZY (CLEAR); BACTERIA,URINE 2+ /HPF (NEGATIVE); HYALINE CASTS, URINE MANY /LPF (NEGATIVE); MUCUS,URINE MODERATE /HPF (NEGATIVE); SPERM,URINE FEW /HPF (NEGATIVE); SQUAMOUS EPITHELIAL CELL,UR MODERATE /HPF (NEGATIVE)
[2020-01-29] MEDS: ZOSYN VIAL 4.5 GRAMS 4.5 G in NS 100 ML IV + SPIKE MINIBAG* 100 ML IV SCH (06:07)
[2020-01-29 07:08] LABS: BASOPHILS % (AUTO) 0.2 % (0.2-1.0); EOSINOPHILS # (AUTO) 0.3 x10^3/uL (0.0-0.2); EOSINOPHILS % (AUTO) 3.9 % (0.9-2.9); HEMATOCRIT 24.5 % (42.0-54.0); LYMPHOCYTES # (AUTO) 0.8 X10^3/uL (1.3-2.9); LYMPHOCYTES % (AUTO) 9.9 % (21.0-51.0); MEAN CORPUSCULAR HEMOGLOBIN 28.7 pg (27.0-34.0); MEAN CORPUSCULAR HGB CONC 32.5 g/dL (33.0-35.0); MEAN CORPUSCULAR VOLUME 88.3 fL (80.0-100.0); MEAN PLATELET VOLUME 9.1 fL (7.4-11.0); MONOCYTES # (AUTO) 0.8 x10^3/uL (0.3-0.8); MONOCYTES % (AUTO) 9.7 % (0.0-13.0); NEUTROPHILS # (AUTO) 6.1 x10^3/uL (2.2-4.8); NEUTROPHILS % (AUTO) 76.3 % (42.0-75.0); PLATELET COUNT 87 X10^3/uL (150.0-450.0); RED BLOOD COUNT 2.77 X10^6/uL (4.7-6.0); RED CELL DISTRIBUTION WIDTH 18.7 % (11.6-16.5)
[2020-01-29 07:41] LABS: ALANINE AMINOTRANSFERASE 10 Units/L (12-78); ALBUMIN 1.1 g/dL (3.4-5.0); ALKALINE PHOSPHATASE 54 Units/L (46-116); ASPARTATE AMINO TRANSFERASE 13 Units/L (15-37); BLOOD UREA NITROGEN 25 mg/dL (7-18); CALCIUM 7.7 mg/dL (8.5-10.1); CARBON DIOXIDE 27.7 mmol/L (21-32); CHLORIDE 106 mmol/L (98-107); COR NA(FOR HYPERGLY) 140 mmol/L (136-145); CREATININE 1.35 mg/dL (0.70-1.30); SODIUM 140 mmol/L (136-145); TOTAL PROTEIN 4.1 g/dL (6.4-8.2); eGFR NON BLACK RACES 55 (>60)
[2020-01-29] MEDS ORDERED: POTASSIUM CHL 60 MEQ/NS 0.45% 500 ML IV PRN (07:51)
[2020-01-29] MEDS ORDERED: POTASSIUM CHL 40 MEQ/NS 0.45% 500 ML IV PRN (07:51)
[2020-01-29] MEDS ORDERED: PHARMACY CONSULT - VANCOMYCIN XX SCH (09:00)
[2020-01-29 09:42] LABS: LACTIC ACID 0.8 mmol/L (0.4-2.0)
[2020-01-29] MEDS: NS 1000 ML 1,000 ML IV SCH ×2 (09:47→11:23)
[2020-01-29] MEDS: K-RIDER 10 MEQ/NS 100 ML 10 MEQ/100 ML BAG IV PRN (09:47)
--- NOTE | 2020-01-29 09:49 | CT ---
HISTORYR/O SACRAL OSTEOMYELITISSTUDYLUMBAR SPINE W/O CONCOMPARISONNoneTECHNIQUEMultiple CT axial images of the lumbar spine were obtained without IV contrast. Coronal and sagittal images were reconstructed. Dose reduction techniques included Automated Exposure Control (AEC) and adjustment of mA and kV.FINDINGSThe study includes the lower T11 vertebral body to the upper S4 vertebra.No significant scoliosis. The usual lumbar lordosis is maintained. There is a compression fracture of the L2 right side vertebral body superior endplate. This could be chronic. The remaining vertebral body heights are normal. No spondylolisthesis.Small osteophytes indicate degenerative disc disease at almost every level. Only very minimal degenerative changes seen in the facets. Sacroiliac joints are unremarkable.There are no erosions in the endplates to suggest discitis. No cortical erosions in the vertebra or the sacrum to suggest osteomyelitis.Increased density in the gallbladder is only partially seen. This could be partially calcified stones or vicarious excretion of contrast. There is no hydronephrosis. No abdominal aortic aneurysm.Increased density is seen in the presacral fat. I believe this is associated with rectal wall thickening. The findings might indicate proctitis. The wall thickening and edema extends into the sigmoid colon.IMPRESSION1. No evidence for osteomyelitis or discitis2. Findings suggesting rectosigmoid colitisElectronically signed by: Frank Whittaker (Jan 29, 2020 09:47:48)
[2020-01-29] MEDS: FLAGYL IV PREMIX 500 MG BAG 500 MG/100 ML BAG IV SCH ×3 (10:22→21:39)
[2020-01-29] MEDS: VANCOMYCIN IV *PREMIX 1.25 G/250 ML BAG 1.25 G/250 ML PIGGYBACK IV SCH ×2 (12:53→22:30)
--- NOTE | 2020-01-29 14:34 | DR.H&P ---
H&P - History & Physical for Day of: H&P Date: 01/28/20 - Chief Complaint Chief Complaint: INFECTION BED SORES, DIARRHEA - History of Present Illness History of Present Illness: PT IS 74 WM ADMITTED WITH GENERALIZED WEAKNESS, DIARRHEA, INFECTED SACRAL DECUBITIS, TUNNEL WITH INCREASED DRAINAGE, SORES TO RIGHT ANKLE AND LEFT HEEL. PT HAS PMH OF HTN. PT IS BED CONFINED AT [facility] IN [place]. PT REPORTS HE HAD BEEN HAVING DIARRHEA FOR OVER A MONTH. PT DENIES ANY CHEST PAIN OR SOB. - Past Medical History Past Medical History: Arthritis, Coronary Artery Disease, Diabetes, Hypertension - Past Surgical History Surgical History: CABG/Valve Surgery, Joint Replacement - Family History Family Medical History: Coronary Artery Disease - Social History Does patient currently use any type of tobacco product: No Have you used tobacco products in the last 12 months: No Type of Tobacco Use: None Does any household member use tobacco: No Alcohol Use: None Drug Use: None - Medications Home Medications: celecoxib [From Celebrex] Allergy (Verified 02/23/17 12:10) CONTINUE taking the following medications apixaban [Eliquis] 5 mg PO BID 01/29/20 [History] clindamycin HCl 300 mg PO QID 01/29/20 [History] divalproex 500 mg PO HS 01/29/20 [History] escitalopram oxalate 10 mg PO HS 01/29/20 [History] ferrous sulfate 325 mg PO .BIDPC 01/29/20 [History] furosemide 20 mg PO DAILY 01/29/20 [History] insulin aspart U-100 [Novolog U-100 Insulin aspart] See Rx Instructions .ROUTE .COMPLEX 01/29/20 [History] pantoprazole 40 mg PO DAILYAC 01/29/20 [History] potassium chloride 40 meq PO DAILY 01/29/20 [History] rosuvastatin 20 mg PO HS 01/29/20 [History] - Review of Systems Constitutional: Weakness Eyes: No Symptoms Reported ENT: No Symptoms Reported Respiratory: No Symptoms Reported Cardiovascular: No Symptoms Reported Gastrointestinal: Diarrhea Genitourinary: Incontinence Musculoskeletal: Back Pain Skin: Wound Neurological: Weakness - Physical Exam Vital Signs: Temperature 97.4 F Pulse Rate [Left Radial] 65 Respiratory Rate 18 Blood Pressure [Right Arm] 87/51 Blood Pressure [Left Arm] 82/44 O2 Sat by Pulse Oximetry 93 Oriented: Normal Eyes: Normal Ear: Normal Nose: Normal Throat: Red, Dry Respiratory: RLL Diminished, LLL Diminished Cardiovascular: Normal : Normal Auscultation: Bowel Sounds: Normal Palpation: Normal Tenderness: Normal Skin: Decreased Turgur, Wound Musculoskeletal: Right, Left, Back:Lumbar, Motor Deficit Psychiatric: Anxiety Affect: Anxious Speech Pattern: Clear, Appropriate - Assessment/Plan (1) Decubitus ulcer of sacral region, stage 4 Status: Acute Plan: ADMIT, BLOOD CULTURES, URINE CULTURE. CXR ON ADMISSION, LACTIC ACID. VERIFY HOME MEDICATION, STOOL STUDIES. IV HYDRATION, STRICT I&OS. IV ANTIBIOTICS (2) UTI (urinary tract infection) Status: Acute (3) Diarrhea Qualifiers: Diarrhea type: infectious Qualified Code(s): A09 - Infectious gastroenteritis and colitis, unspecified Status: Acute (4) Weakness generalized Status: Acute (5) COPD (chronic obstructive pulmonary disease) Status: Chronic (6) Diabetes Status: Chronic - Allergies Allergies/Adverse Reactions: Allergies Allergy/AdvReac Type Severity Reaction Status Date / Time celecoxib [From Celebrex] Allergy Verified 02/23/17 12:10
[2020-01-29] MEDS ORDERED: NS 1000 ML 1,000 ML ONE (15:00)
[2020-01-29] MEDS ORDERED: INFeD or DEXFERRUM 25 MG in NS 100 ML IV 100 ML IV ONE (15:00)
[2020-01-29] MEDS ORDERED: OFIRMEV IV 1000 MG VIAL 1,000 MG/100 ML VIAL IV ONE (15:11)
[2020-01-29] MEDS ORDERED: FENTANYL INJ 100 mcg ONE (15:11)
[2020-01-29] MEDS ORDERED: XYLOCAINE 1 % (PLAIN) ONE (15:14)
[2020-01-29] MEDS ORDERED: DIPRIVAN VIAL ONE (15:14)
[2020-01-29] MEDS ORDERED: VERSED ONE (15:14)
[2020-01-29] MEDS ORDERED: INFeD or DEXFERRUM 975 MG in NS 500 ML IV 500 ML IV ONE (15:30)
[2020-01-29] MEDS ORDERED: ANCEF VIAL 1 GRAM ONE (15:31)
[2020-01-29] MEDS ORDERED: BETADINE SOLN ONE (15:43)
[2020-01-29] MEDS ORDERED: PHARMACY CONSULT LTC MEDICATIONS XX SCH (16:00)
[2020-01-29] MEDS ORDERED: NS 1000 ML 1,000 ML IV ONE (16:43)
[2020-01-29] MEDS ORDERED: DOPAMINE IV PREMIX 400 MG/250 ML 400 MG/250 ML BAG IV ONE (16:49)
[2020-01-29] MEDS: DOPAMINE IV PREMIX 400 MG/250 ML 400 MG/250 ML BAG IV PRN (17:02)
[2020-01-29] MEDS ORDERED: PATIENT'S HOME MEDICATION (Ferrous Sulfate 325 mg (65 mg iron) Tablet) PO SCH (17:15)
--- NOTE | 2020-01-29 17:49 | DR.UPDATE ---
H&P Update History and Physical Update: History and Physical reviewed and patient examined. Changes noted: NO Yes with the following:will place central line for vasoactive iv medication H&P Reviewed: Yes Patient was examined?: Yes Procedures (ALL) - Central Line Placement PCM.CLCO: written consent Time out performed: Yes Patient placed pm monitor/pulse ox: Yes MD prep: mask, gown, gloves, other Centrial line prep: chlorhexidine scrub, sterile drapes applied Local anesthsia used: lidocane 1% Ultrasound used for placement: Yes (right ij id'd via u/s and cannulation visualized) Central line lumen ininserted: triple Post procedure: sutured in place, good blood return, all ports aspirated, flushed,capped, sterile dressing applied Post procedure xray: tip oc catheter in good position, no pneumothorax seen Patient tolerated procedure: Yes Complications: none
--- NOTE | 2020-01-29 18:08 | RAD ---
EXAM: CHEST X-RAYHISTORY: Central line placement. Sacral decubitus ulcer. C. diff infection.TECHNIQUE: AP chest x-ray dated 01/29/2020 at 5:23 PM.COMPARISON: CXR dated 01/28/2020.FINDINGS:Note: Exam again degraded by shallow inspiratory effort.Interval appearance of a right internal jugular central venous catheter with distal tip in SVC (adequate position). Recommend careful clinical correlation to ensure venous blood return.Status post median sternotomy, presumably for CABG. There is evidence for cardiomegaly. The pulmonary vascularity and interstitial markings are diffusely prominent, consistent with mild CHF or volume overload in the appropriate clinical setting; differential diagnosis includes (but is not limited to) mild bronchitis and interstitial pneumonia in the appropriate clinical setting.There is no gross focal lung consolidation, pleural effusion, or pneumothorax seen. The visualized bony structures are within normal limits.IMPRESSION:1. Interval appearance of a right internal jugular central venous catheter with distal tip in SVC (adequate position). Recommend careful clinical correlation to ensure venous blood return.2. Findings consistent with mild to moderate CHF or volume overload in the appropriate clinical setting (with interval progression of infiltrates compared with the previous exam); DDX includes (but is not limited to) mild bronchitis and interstitial pneumonia in the appropriate clinical setting. Recommend clinical correlation and appropriate follow evaluation to ensure interval clearance as clinically warranted.Electronically signed by: Mer Delacruz (Jan 29, 2020 18:06:42)
[2020-01-29] MEDS: SNACK - Diabetic Appropriate PO SCH (20:00)
[2020-01-29] MEDS: LASIX PO SCH (21:37)
[2020-01-29] MEDS: CRESTOR TAB 10 MG PO SCH (21:38)
[2020-01-29] MEDS: K-DUR TAB 20 MEQ PO SCH (21:38)
[2020-01-29] MEDS: HEMOCYTE-PLUS PO SCH (21:48)
[2020-01-30] MEDS: NS 1000 ML 1,000 ML IV SCH ×2 (01:11→15:35)
[2020-01-30 01:13] LABS: HEMATOCRIT 31.6 % (42.0-54.0); HEMOGLOBIN 10.1 g/dL (13.5-18.0)
[2020-01-30] MEDS: FLAGYL IV PREMIX 500 MG BAG 500 MG/100 ML BAG IV SCH ×4 (03:10→20:09)
[2020-01-30 06:40] LABS: BASOPHILS # (AUTO) 0.1 X10^3/uL (0.0-0.1); BASOPHILS % (AUTO) 0.4 % (0.2-1.0); EOSINOPHILS # (AUTO) 0.1 x10^3/uL (0.0-0.2); EOSINOPHILS % (AUTO) 0.8 % (0.9-2.9); HEMOGLOBIN 9.8 g/dL (13.5-18.0); LYMPHOCYTES # (AUTO) 1.1 X10^3/uL (1.3-2.9); LYMPHOCYTES % (AUTO) 5.7 % (21.0-51.0); MEAN CORPUSCULAR HEMOGLOBIN 27.4 pg (27.0-34.0); MEAN CORPUSCULAR HGB CONC 31.6 g/dL (33.0-35.0); MEAN CORPUSCULAR VOLUME 86.8 fL (80.0-100.0); MEAN PLATELET VOLUME 8.7 fL (7.4-11.0); MONOCYTES # (AUTO) 1.4 x10^3/uL (0.3-0.8); MONOCYTES % (AUTO) 7.6 % (0.0-13.0); NEUTROPHILS % (AUTO) 85.5 % (42.0-75.0); PLATELET COUNT 109 X10^3/uL (150.0-450.0); RED BLOOD COUNT 3.57 X10^6/uL (4.7-6.0); RED CELL DISTRIBUTION WIDTH 20.5 % (11.6-16.5); WHITE BLOOD COUNT 18.7 X10^3/uL (3.6-10.0)
[2020-01-30 06:47] LABS: ALBUMIN 1.2 g/dL (3.4-5.0); CALCIUM 7.8 mg/dL (8.5-10.1); CARBON DIOXIDE 25.8 mmol/L (21-32); CREATININE 1.63 mg/dL (0.70-1.30); TOTAL PROTEIN 4.5 g/dL (6.4-8.2)
[2020-01-30 07:33] LABS: BAND NEUTROPHILS % 2 % (0-10)
[2020-01-30 07:34] LABS: ANISOCYTOSIS 1+; PLATELET MORPHOLOGY COMMENT NORMAL (NORMAL)
[2020-01-30] MEDS: LASIX PO SCH (08:38)
[2020-01-30] MEDS: K-DUR TAB 20 MEQ PO SCH (08:38)
[2020-01-30] MEDS: HEMOCYTE-PLUS PO SCH ×2 (08:38→18:14)
[2020-01-30] MEDS: VANCOMYCIN IV *PREMIX 1.25 G/250 ML BAG 1.25 G/250 ML PIGGYBACK IV SCH ×2 (08:42→22:37)
[2020-01-30] MEDS ORDERED: ELIQUIS PO SCH (09:00)
[2020-01-30] MEDS: LASIX IVP SCH ×2 (09:50→16:54)
[2020-01-30] MEDS: PROTONIX INJ 40 MG VIAL IVP SCH (09:51)
--- NOTE | 2020-01-30 10:41 | RAD ---
HISTORYCHF/POSSIBLE PULMONARY EDEMASTUDYCHEST, 1 [id number]/2020FINDINGSThe trachea is midline. There is a right IJ catheter with the tip in the SVC. Patient is status post sternotomy. There is again seen elevation of the diaphragms. There is mild distension air of the stomach in the current study. There is persistent bilateral ground-glass radiopacities slightly less denser since prior in the perihilar region. No pneumothorax. Trace effusion. No central edema.IMPRESSIONPersistent bilateral elevation of the diaphragm. Interval improvement of previously seen perihilar infiltrates in the right with persistent some ground-glass radiopacities in the right lower lobe and in the left perihilar region could represent pneumonia.Distended stomach.Electronically signed by: Marla Forrest (Jan 30, 2020 10:39:22)
[2020-01-30 10:47] VITALS: BMI 27.6
[2020-01-30] MEDS ORDERED: PHARMACY COMMENT IV NR (20:30)
[2020-01-30] MEDS: CRESTOR TAB 10 MG PO SCH (21:09)
[2020-01-30 21:24] LABS: CREATININE 1.28 mg/dL (0.70-1.30)
[2020-01-30] MEDS: SNACK - Diabetic Appropriate PO SCH (21:26)
[2020-01-30 21:58] LABS: VANCOMYCIN,TROUGH 38.8 ug/mL (15-20)
[2020-01-31] MEDS: FLAGYL IV PREMIX 500 MG BAG 500 MG/100 ML BAG IV SCH ×4 (04:20→21:30)
[2020-01-31] MEDS: NS 1000 ML 1,000 ML IV SCH ×2 (05:37→11:00)
[2020-01-31 06:57] LABS: BASOPHILS # (AUTO) 0.1 X10^3/uL (0.0-0.1); BASOPHILS % (AUTO) 0.4 % (0.2-1.0); EOSINOPHILS # (AUTO) 0.2 x10^3/uL (0.0-0.2); EOSINOPHILS % (AUTO) 1.3 % (0.9-2.9); HEMATOCRIT 25.4 % (42.0-54.0); HEMOGLOBIN 8.1 g/dL (13.5-18.0); LYMPHOCYTES # (AUTO) 1.1 X10^3/uL (1.3-2.9); LYMPHOCYTES % (AUTO) 8.3 % (21.0-51.0); MEAN CORPUSCULAR HEMOGLOBIN 27.6 pg (27.0-34.0); MEAN CORPUSCULAR HGB CONC 31.9 g/dL (33.0-35.0); MEAN CORPUSCULAR VOLUME 86.4 fL (80.0-100.0); MEAN PLATELET VOLUME 8.2 fL (7.4-11.0); MONOCYTES # (AUTO) 0.9 x10^3/uL (0.3-0.8); MONOCYTES % (AUTO) 6.4 % (0.0-13.0); NEUTROPHILS # (AUTO) 11.4 x10^3/uL (2.2-4.8); NEUTROPHILS % (AUTO) 83.6 % (42.0-75.0); PLATELET COUNT 97 X10^3/uL (150.0-450.0); RED BLOOD COUNT 2.94 X10^6/uL (4.7-6.0); RED CELL DISTRIBUTION WIDTH 20.2 % (11.6-16.5); WHITE BLOOD COUNT 13.7 X10^3/uL (3.6-10.0)
[2020-01-31 07:11] LABS: CALCIUM 7.3 mg/dL (8.5-10.1); COR CA(FOR HYPOALB) 9.7 mg/dL (8.5-10.1); CREATININE 1.66 mg/dL (0.70-1.30)
[2020-01-31 07:20] LABS: CARBON DIOXIDE 23.6 mmol/L (21-32)
[2020-01-31 07:31] LABS: ANISOCYTOSIS 1+; CRENATED RBC SLIGHT; HYPOCHROMASIA SLIGHT; PLATELET MORPHOLOGY COMMENT NORMAL (NORMAL)
[2020-01-31] MEDS: PROTONIX INJ 40 MG VIAL IVP SCH (08:17)
[2020-01-31] MEDS: HEMOCYTE-PLUS PO SCH ×2 (08:22→17:01)
[2020-01-31] MEDS: K-DUR TAB 20 MEQ PO SCH (08:22)
[2020-01-31] MEDS: LASIX PO SCH (08:23)
[2020-01-31] MEDS ORDERED: HYDROGEN PEROXIDE 3% ONE (09:28)
--- NOTE | 2020-01-31 09:31 | RAD ---
HISTORYABD DISTENTIONSTUDYKUBCOMPARISONNoneTECHNIQUETwo images of the abdomen, supine KUBFINDINGSMidline pelvic catheter likely a Higgins catheter. Borderline sized loops of small bowel in the left lower quadrant me asuring up to 2.8 cm. There is gas in the colon. Elevated left emely diaphragm. Left hip arthroplasty noted. No free air, pneumatosis or portal venous gas. No suspicious calcifications. Nonspecific 5.1 c m hyperdense round structure in the low pelvis.IMPRESSIONBorderline sized loops of small bowel in the left lower quadrant. This is nonspecific but could represent enteritis, low-grade obstruction or elaine ign gas-filled bowel loops.Nonspecific round hyperdense structure in the low pelvis may represent charisse cification.Electronically signed by: Dar Mejia (Jan 31, 2020 09:29:41)
[2020-01-31] MEDS: OFIRMEV IV 1000 MG VIAL 1,000 MG/100 ML VIAL IV PRN (10:58)
--- NOTE | 2020-01-31 16:14 | CT ---
HISTORYSmall bowel obstruction abdominal pain C diffSTUDYABDOMEN/PELVIS W/O CONCOMPARISONNone availableTECHNIQUEAxial images through the abdomen and pelvis were performed without intravenous contrast. CT scan was performed following ALARA (As low as Reasonably Achievable).Coronal and Sagittal reformatted images were performed.FINDINGSThe lung bases demonstrate bilateral small effusions left more than right, there is also bibasal radiopacities atelectasis versus pneumonia. The ascending aorta measures approximately 4 x 4.3 centimeters. There is moderate ascites with perihepatic and perisplenic fluids. The pancreas demonstrate no focal lesions. There is no intra or extrahepatic biliary dilatation. There is a possible dense gallstone. There is increase density of the gallbladder. There is no adrenal masses. There bilateral normal sized kidneys without evidence of hydronephrosis. There is a hyperdense exophytic lesion in the left renal cortex anteriorly measuring approximately 1 centimeter. There is also is round calcification in the upper pole of the left kidney measuring 8 millimeters.There is no focal dilatation of the abdominal aorta.There are small multiple retroperitoneal lymph nodes the largest area measuring 2 x 1.7 centimeters.The stomach is no significant distende.d there is fluid in the posterior wall of the stomach. There is no abnormal dilated small bowel loops.There is severe wall thickening of the right colon. Transverse colon and left colon and rectosigmoid colon consider pancolitis.There is no evidence of free air.Pelvis: There is mucosal thickening of the rectosigmoid colon. There is a focal hyperdensity in the left iliacus muscle measuring 3.5 x 4.8 centimeters that could correspond with a hematoma, extending inferiorly along the ileo psoas bursa at the level of the pelvis. There are bubbles of air in the inferior aspect it could be due to previous manipulation versus an infection. There is a Higgins catheter in the bladder, that appears decompressed. There is diffuse edema of the soft tissues.Bone windows no evidence of aggressive bone lesions. There are multiple old compression fractures at T10, T8 after counting from below. No acute fractures are seen.IMPRESSIONSevere diffuse mucosal thickening of the colon consider pancolitis probably C diff colitis per history. No evidence of small-bowel obstruction, no abnormal dilated small bowel loops, no evidence of free airModerate ascitesHyperdense lesion in the left iliacus muscle extending to the lower pelvis at ileo psoas bursa region with bubbles of air in the inferior aspect it could represent hematoma; however infected hematoma is not excluded correlation with previous manipulation is recommendedBibasal radiopacities and small bilateral pleural effusion, Mild retroperitoneal adenopathyElectronically signed by: Marla Forrest (Jan 31, 2020 16:13:05)
[2020-01-31] MEDS: VANCOMYCIN IV *PREMIX 500 mg/100 ML BAG 500 MG/100 ML PIGGYBACK IV SCH (21:30)
[2020-02-01] MEDS: NS 1000 ML 1,000 ML IV SCH ×3 (02:24→22:32)
[2020-02-01] MEDS: SNACK - Diabetic Appropriate PO SCH ×2 (02:26→20:49)
[2020-02-01] MEDS: CRESTOR TAB 10 MG PO SCH ×2 (02:26→20:49)
[2020-02-01] MEDS: FLAGYL IV PREMIX 500 MG BAG 500 MG/100 ML BAG IV SCH ×2 (05:00→09:15)
[2020-02-01 06:58] LABS: ALBUMIN 1.1 g/dL (3.4-5.0); CALCIUM 7.5 mg/dL (8.5-10.1); CARBON DIOXIDE 23.2 mmol/L (21-32); COR CA(FOR HYPOALB) 9.8 mg/dL (8.5-10.1); CREATININE 1.61 mg/dL (0.70-1.30); TOTAL PROTEIN 4.3 g/dL (6.4-8.2)
[2020-02-01 07:18] LABS: BASOPHILS % (AUTO) 0.2 % (0.2-1.0); EOSINOPHILS # (AUTO) 0.2 x10^3/uL (0.0-0.2); EOSINOPHILS % (AUTO) 1.1 % (0.9-2.9); HEMATOCRIT 26.1 % (42.0-54.0); HEMOGLOBIN 8.3 g/dL (13.5-18.0); LYMPHOCYTES % (AUTO) 5.7 % (21.0-51.0); MEAN CORPUSCULAR HEMOGLOBIN 27.5 pg (27.0-34.0); MEAN CORPUSCULAR HGB CONC 31.7 g/dL (33.0-35.0); MEAN CORPUSCULAR VOLUME 86.6 fL (80.0-100.0); MEAN PLATELET VOLUME 8.2 fL (7.4-11.0); MONOCYTES # (AUTO) 0.8 x10^3/uL (0.3-0.8); MONOCYTES % (AUTO) 4.6 % (0.0-13.0); NEUTROPHILS # (AUTO) 15.4 x10^3/uL (2.2-4.8); NEUTROPHILS % (AUTO) 88.4 % (42.0-75.0); PLATELET COUNT 110 X10^3/uL (150.0-450.0); RED BLOOD COUNT 3.01 X10^6/uL (4.7-6.0); RED CELL DISTRIBUTION WIDTH 19.9 % (11.6-16.5); WHITE BLOOD COUNT 17.4 X10^3/uL (3.6-10.0)
[2020-02-01 07:29] LABS: ANISOCYTOSIS 1+; HYPOCHROMASIA SLIGHT; PLATELET MORPHOLOGY COMMENT NORMAL (NORMAL)
[2020-02-01 07:30] LABS: CRENATED RBC SLIGHT
[2020-02-01] MEDS: PROTONIX INJ 40 MG VIAL IVP SCH ×2 (09:15→20:48)
[2020-02-01] MEDS: LASIX PO SCH (09:40)
[2020-02-01] MEDS: K-DUR TAB 20 MEQ PO SCH (09:40)
[2020-02-01] MEDS: HEMOCYTE-PLUS PO SCH ×2 (09:40→18:32)
[2020-02-01] MEDS: VANCOMYCIN IV *PREMIX 500 mg/100 ML BAG 500 MG/100 ML PIGGYBACK IV SCH ×2 (10:14→20:49)
[2020-02-01] MEDS ORDERED: PHARMACY CONSULT - TPN XX SCH (13:00)
[2020-02-01] MEDS: MERREM VIAL 500 MG in NS 100 ML IV + SPIKE MINIBAG* 100 ML IV SCH ×3 (13:42→22:10)
[2020-02-01] MEDS ORDERED: PROCALAMINE 3 % 1,000 ML IV SCH (14:00)
[2020-02-01] MEDS: DOPAMINE IV PREMIX 400 MG/250 ML 400 MG/250 ML BAG IV PRN (20:51)
[2020-02-02] MEDS: MERREM VIAL 500 MG in NS 100 ML IV + SPIKE MINIBAG* 100 ML IV SCH ×3 (05:30→22:00)
[2020-02-02 06:35] LABS: BASOPHILS % (AUTO) 0.2 % (0.2-1.0); EOSINOPHILS # (AUTO) 0.2 x10^3/uL (0.0-0.2); EOSINOPHILS % (AUTO) 1.1 % (0.9-2.9); HEMATOCRIT 25.7 % (42.0-54.0); HEMOGLOBIN 8.1 g/dL (13.5-18.0); LYMPHOCYTES % (AUTO) 6.7 % (21.0-51.0); MEAN CORPUSCULAR HEMOGLOBIN 27.6 pg (27.0-34.0); MEAN CORPUSCULAR HGB CONC 31.7 g/dL (33.0-35.0); MEAN PLATELET VOLUME 8.2 fL (7.4-11.0); MONOCYTES % (AUTO) 6.5 % (0.0-13.0); NEUTROPHILS # (AUTO) 12.8 x10^3/uL (2.2-4.8); NEUTROPHILS % (AUTO) 85.5 % (42.0-75.0); PLATELET COUNT 107 X10^3/uL (150.0-450.0); RED BLOOD COUNT 2.96 X10^6/uL (4.7-6.0); RED CELL DISTRIBUTION WIDTH 20.2 % (11.6-16.5)
[2020-02-02 06:53] LABS: CALCIUM 7.7 mg/dL (8.5-10.1); CARBON DIOXIDE 23.4 mmol/L (21-32); COR CA(FOR HYPOALB) 10.1 mg/dL (8.5-10.1); CREATININE 1.58 mg/dL (0.70-1.30); TOTAL PROTEIN 4.1 g/dL (6.4-8.2)
[2020-02-02 06:58] LABS: ANISOCYTOSIS 1+; BAND NEUTROPHILS % 8 % (0-10); PLATELET MORPHOLOGY COMMENT NORMAL (NORMAL)
[2020-02-02 06:59] LABS: TARGET CELLS FEW
[2020-02-02 07:01] LABS: CRENATED RBC FEW
[2020-02-02] MEDS: HEMOCYTE-PLUS PO SCH ×2 (08:23→18:05)
[2020-02-02] MEDS: LASIX PO SCH (08:23)
[2020-02-02] MEDS: PROTONIX INJ 40 MG VIAL IVP SCH ×2 (08:23→20:50)
[2020-02-02] MEDS: VANCOMYCIN IV *PREMIX 500 mg/100 ML BAG 500 MG/100 ML PIGGYBACK IV SCH ×3 (08:23→20:50)
[2020-02-02] MEDS: K-DUR TAB 20 MEQ PO SCH (08:24)
[2020-02-02] MEDS: K-RIDER 10 MEQ/NS 100 ML 10 MEQ/100 ML BAG IV PRN ×5 (08:25→22:59)
[2020-02-02] MEDS ORDERED: PHARMACY COMMENT IV NR (08:30)
[2020-02-02] MEDS: MVI IV SCH ×6 (09:54→20:54)
[2020-02-02] MEDS: [UNRECOGNIZED DRUG - OTHER] IV SCH ×6 (09:54→20:54)
[2020-02-02] MEDS: CLINIMIX IV SCH ×6 (09:54→20:54)
[2020-02-02] MEDS: LASIX IVP SCH (10:11)
[2020-02-02] MEDS: NS 1000 ML 1,000 ML IV SCH ×2 (10:11→14:08)
--- NOTE | 2020-02-02 12:29 | RAD ---
HISTORYCHFSTUDYCHEST, 1 [id number]/2020FINDINGSRight IJ central venous catheter is stable. Heart size and pulmonary vasculature are unchanged. Median sternotomy changes related to CABG. There are markedly low lung volumes with improving bilateral airspace opacities. Trace left basilar pleural effusion is noted. No pneumothorax.IMPRESSIONImproving bilateral pulmonary airspace opacities, may reflect edema or pneumonia.Electronically signed by: Abel Rowe (Feb 02, 2020 12:28:07)
[2020-02-02] MEDS: HumuLIN R SUBCUT PRN ×2 (17:16→20:50)
[2020-02-02] MEDS ORDERED: HumuLIN R ONE (17:19)
--- NOTE | 2020-02-02 17:26 | DR.PROGNOT ---
Hospital Progress Notes - Progress Note for Day of: Progress Note Date: 02/02/20 - Chief Complaint Chief Complaint: no changes ingeneral condition . mild drainage fromf the large sacral ulcers .no bleeding now . oral intake is very poor . Vanco level 19.1. WBC 15..Hgb 8.1 CECY/Crea 27/1.58... K 3.1 . Albumin 1 .. BS 304. temp 99 - Past Medical Family Social History Allergies: Allergies celecoxib [From Celebrex] Allergy (Verified 02/23/17 12:10) - Review Of Systems ROS: No change since H&P - Vital Signs Vital Signs: Temperature 99.5 F Pulse Rate [Left Radial] 87 Respiratory Rate 18 Blood Pressure [Right Arm] 101/59 Blood Pressure [Left Arm] 82/44 O2 Sat by Pulse Oximetry 95 - Physical Exam Oriented: Normal Eyes: Normal Ear: Normal Nose: Normal Throat: Normal, Red, Dry Cardiovascular: Normal : Normal GI:Auscultation: Normal GI:Palpation: Normal GI: Tenderness: Normal Skin: Wound (large sacral decubitus ulcer 8x8x3 cm with dark base , no necrosis or abscess .. moderate associated cellulitis ) Musculoskeletal: Right, Left, Back:Lumbar, Motor Deficit Psychiatric: Anxiety Affect: Anxious Speech Pattern: Clear, Appropriate - Laboratory and Diagnostics Result Diagrams: 02/02/20 05:16 02/02/20 05:16 Labs: 01/28/20 21:30 Stool Stool Culture - Final 01/28/20 21:30 Stool - Final 01/28/20 21:55 Blood Blood Culture - Final Staphylococcus Aureus 01/29/20 15:55 Foot - Left Gram Stain - Final 01/29/20 15:55 Foot - Left Wound Culture - Final Klebsiella Pneumoniae 01/28/20 21:55 Sacral Gram Stain - Final 01/28/20 21:55 Sacral Wound Culture - Final Klebsiella Pneumoniae Escherichia Coli 01/28/20 22:30 Urine,Clean Catch Urine Culture - Final Klebsiella Pneumoniae Pseudomonas Aeruginosa 01/28/20 21:48 Blood Blood Culture - Preliminary Laboratory WBC 15.0 X10^3/uL (3.6-10.0) H 02/02/20 05:16 RBC 2.96 X10^6/uL (4.7-6.0) L 02/02/20 05:16 Hgb 8.1 g/dL (13.5-18.0) L 02/02/20 05:16 Hct 25.7 % (42.0-54.0) L 02/02/20 05:16 MCV 87.0 fL (80.0-100.0) 02/02/20 05:16 MCH 27.6 pg (27.0-34.0) 02/02/20 05:16 MCHC 31.7 g/dL (33.0-35.0) L 02/02/20 05:16 RDW 20.2 % (11.6-16.5) H 02/02/20 05:16 Plt Count 107 X10^3/uL (150.0-450.0) L 02/02/20 05:16 Plt Count Comment Adequate (ADEQUATE) 02/02/20 05:16 MPV 8.2 fL (7.4-11.0) 02/02/20 05:16 Neut % (Auto) 85.5 % (42.0-75.0) H 02/02/20 05:16 Lymph % (Auto) 6.7 % (21.0-51.0) L 02/02/20 05:16 Atkinson % (Auto) 6.5 % (0.0-13.0) 02/02/20 05:16 Eos % (Auto) 1.1 % (0.9-2.9) 02/02/20 05:16 Baso % (Auto) 0.2 % (0.2-1.0) 02/02/20 05:16 Neut # (Auto) 12.8 x10^3/uL (2.2-4.8) H 02/02/20 05:16 Lymph # (Auto) 1.0 X10^3/uL (1.3-2.9) L 02/02/20 05:16 Atkinson # (Auto) 1.0 x10^3/uL (0.3-0.8) H 02/02/20 05:16 Eos # (Auto) 0.2 x10^3/uL (0.0-0.2) 02/02/20 05:16 Baso # (Auto) 0.0 X10^3/uL (0.0-0.1) 02/02/20 05:16 Absolute Nucleated RBC 0.0 /100WBC 02/02/20 05:16 Total Counted 100 02/02/20 05:16 Neutrophils % (Manual) 80 % (39-76) H 02/02/20 05:16 Band Neutrophils % 8 % (0-10) 02/02/20 05:16 Lymphocytes % (Manual) 6 % (13-43) L 02/02/20 05:16 Monocytes % (Manual) 6 % (4-9) 02/02/20 05:16 Eosinophils % (Manual) 2 % (0-6) 02/01/20 05:41 Plt Morphology Comment Normal (NORMAL) 02/02/20 05:16 RBC Morphology Abnormal (NORMAL) 02/02/20 05:16 Hypochromasia Slight A 02/01/20 05:41 Anisocytosis 1+ A 02/02/20 05:16 Target Cells Few 02/02/20 05:16 Crenated Cell Few 02/02/20 05:16 Sodium 145 mmol/L (136-145) 02/02/20 05:16 Corrected Sodium 147 mmol/L (136-145) H 02/02/20 05:16 Potassium 3.1 mmol/L (3.5-5.1) L 02/02/20 05:16 Chloride 111 mmol/L (98-107) H 02/02/20 05:16 Carbon Dioxide 23.4 mmol/L (21-32) 02/02/20 05:16 BUN 27 mg/dL (7-18) H 02/02/20 05:16 Creatinine 1.58 mg/dL (0.70-1.30) H 02/02/20 05:16 Est GFR (MDRD) Af Amer 56 (>60) L 02/02/20 05:16 Est GFR (MDRD) Non-Af 46 (>60) L 02/02/20 05:16 Glucose 172 mg/dL (65-99) H 02/02/20 05:16 POC Glucose (mg/dL) 304 mg/dL (65-99) H 02/02/20 16:47 Lactic Acid 0.8 mmol/L (0.4-2.0) 02/02/20 11:40 Calcium 7.7 mg/dL (8.5-10.1) L 02/02/20 05:16 Corrected Calcium 10.1 mg/dL (8.5-10.1) 02/02/20 05:16 Magnesium 1.9 mg/dL (1.7-2.9) 02/02/20 05:16 Iron 14 ug/dL (50-175) L 01/29/20 09:17 Transferrin 59 mg/dL (202-364) L 01/29/20 09:17 Ferritin 1279 ng/mL (26-388) H 01/29/20 09:17 Total Bilirubin 0.50 mg/dL (0.2-1.0) 02/02/20 05:16 AST 15 Units/L (15-37) 02/02/20 05:16 ALT 11 Units/L (12-78) L 02/02/20 05:16 Alkaline Phosphatase 100 Units/L (46-116) 02/02/20 05:16 Total Protein 4.1 g/dL (6.4-8.2) L 02/02/20 05:16 Albumin 1.0 g/dL (3.4-5.0) L 02/02/20 05:16 Globulin 3.1 g/dL (2.5-4.5) 02/02/20 05:16 Albumin/Globulin Ratio 0.3 Ratio (1.1-2.1) L 02/02/20 05:16 Prealbumin 4.6 mg/dL (18-35.7) L 02/01/20 05:41 Vitamin B12 1430 pg/mL (193-986) H 01/29/20 09:17 Folate 9.9 ng/mL (>8.6) 01/29/20 09:17 Specimen Type Clean catch urine 01/28/20 22:30 Urine Color Barbara (YELLOW) 01/28/20 22:30 Urine Appearance Slightly hazy (CLEAR) 01/28/20 22:30 Urine pH 5.0 (5.0 - 8.0) 01/28/20 22:30 Ur Specific [place] 1.020 (1.000-1.030) 01/28/20 22: Urine Protein 2+ (NEGATIVE) 01/28/20 22: Urine Glucose (UA) Negative (NEGATIVE) 01/28/20 22:30 Urine Ketones Negative (NEGATIVE) 01/28/20 22:30 Urine Occult Blood 5+ (NEGATIVE) 01/28/20 22: Urine Nitrite Negative (NEGATIVE) 12/15/20 22:30 Urine Bilirubin Negative (NEGATIVE) 01/28/20 22:30 Urine Urobilinogen Normal (NORMAL) 01/28/20 22:30 Ur Leukocyte Esterase 1+ (NEGATIVE) 01/28/20 22:30 Urine RBC 3-5 /HPF (0-3) A 01/28/20 22:30 Urine WBC 0-2 /HPF (0-5) 01/28/20 22:30 Ur Squamous Epith Cells Moderate /HPF (NEGATIVE) 01/28/20 22:30 Amorphous Sediment 1+ /HPF (NEGATIVE) 01/28/20 22:30 Urine Bacteria 2+ /HPF (NEGATIVE) 01/28/20 22:30 Hyaline Casts Many /LPF (NEGATIVE) 01/28/20 22:30 Urine Mucus Moderate /HPF (NEGATIVE) 01/28/20 22:30 Urine Sperm Few /HPF (NEGATIVE) 01/28/20 22:30 Ur Culture Indicated? Yes/culture set up 01/28/20 22:30 Stool Description 50g green watery 01/28/20 21:30 Stool Description 50g green watery 01/28/20 21:30 Stl Occult Blood (IFOB) Positive (NEGATIVE) A 01/28/20 21:30 Stool for White Cells Positive (NEGATIVE) A 01/28/20 21:30 Stl C. diff Tox B Gene Positive (NEGATIVE) A 01/28/20 21:30 Stl C. diff 027-NAP1-BI Positive (NEGATIVE) A 01/28/20 21:30 Vancomycin Trough 38.8 ug/mL (15-20) H* 01/30/20 20:36 Random Vancomycin 19.1 ug/mL 02/02/20 05:16 C. difficile Toxin A&B Positive (NEGATIVE) A 01/28/20 21:30 Cryptosporid parvum Ag Negative (NEGATIVE) 01/28/20 21:30 Giardia lamblia Ag Negative (NEGATIVE) 01/28/20 21:30 SARS CoV-2 RNA Rapid PHI Negative (NEGATIVE) 01/28/20 19:04 Tissue Pathology To follow 01/29/20 15:55 Blood Type AB POSITIVE 01/29/20 18:26 Antibody Screen Negative 01/29/20 18:26 Crossmatch See Detail 01/29/20 18:26 - Assessment and Plan 1: sepsis from large decubitus ulcers,maybe [place] ulcers .. cellulitis . poor oral intake and malnutrition . DM. same local care , IV ATB . nutritional support maybe placement of PEG tube . prognosis is poor .. - Problem Patient Problems: Patient Problems Decubitus ulcer of sacral region, stage 4 (Acute) L89.154 UTI (urinary tract infection) (Acute) N39.0 Diarrhea (Acute) R19.7 Weakness generalized (Acute) R53.1 COPD (chronic obstructive pulmonary disease) (Chronic) J44.9 Diabetes (Chronic) E11.9
[2020-02-02] MEDS: SNACK - Diabetic Appropriate PO SCH ×2 (20:02→20:30)
[2020-02-02] MEDS: CRESTOR TAB 10 MG PO SCH (20:03)
[2020-02-02] MEDS: LIPOSYN III 20% 100ML 100 ML IV SCH (20:54)
[2020-02-03] MEDS: K-RIDER 10 MEQ/NS 100 ML 10 MEQ/100 ML BAG IV PRN ×5 (00:12→16:38)
[2020-02-03] MEDS: NS 1000 ML 1,000 ML IV SCH ×2 (02:24→18:01)
[2020-02-03] MEDS: MERREM VIAL 500 MG in NS 100 ML IV + SPIKE MINIBAG* 100 ML IV SCH ×3 (05:38→22:32)
[2020-02-03] MEDS: HumuLIN R SUBCUT PRN ×3 (06:12→18:01)
[2020-02-03 06:42] LABS: ALBUMIN 1.1 g/dL (3.4-5.0); CALCIUM 7.9 mg/dL (8.5-10.1); CARBON DIOXIDE 28.5 mmol/L (21-32); COR CA(FOR HYPOALB) 10.2 mg/dL (8.5-10.1); CREATININE 1.51 mg/dL (0.70-1.30); TOTAL PROTEIN 4.4 g/dL (6.4-8.2)
[2020-02-03 06:56] LABS: BASOPHILS # (AUTO) 0.1 X10^3/uL (0.0-0.1); BASOPHILS % (AUTO) 0.5 % (0.2-1.0); EOSINOPHILS # (AUTO) 0.4 x10^3/uL (0.0-0.2); EOSINOPHILS % (AUTO) 2.5 % (0.9-2.9); HEMATOCRIT 27.4 % (42.0-54.0); HEMOGLOBIN 8.5 g/dL (13.5-18.0); LYMPHOCYTES # (AUTO) 1.3 X10^3/uL (1.3-2.9); LYMPHOCYTES % (AUTO) 9.2 % (21.0-51.0); MEAN CORPUSCULAR HEMOGLOBIN 27.4 pg (27.0-34.0); MEAN CORPUSCULAR VOLUME 88.5 fL (80.0-100.0); MEAN PLATELET VOLUME 8.2 fL (7.4-11.0); MONOCYTES # (AUTO) 1.1 x10^3/uL (0.3-0.8); MONOCYTES % (AUTO) 7.3 % (0.0-13.0); NEUTROPHILS # (AUTO) 11.5 x10^3/uL (2.2-4.8); NEUTROPHILS % (AUTO) 80.5 % (42.0-75.0); PLATELET COUNT 112 X10^3/uL (150.0-450.0); RED CELL DISTRIBUTION WIDTH 20.6 % (11.6-16.5); WHITE BLOOD COUNT 14.3 X10^3/uL (3.6-10.0)
[2020-02-03 07:26] LABS: ANISOCYTOSIS 1+; BAND NEUTROPHILS % 4 % (0-10); HYPOCHROMASIA SLIGHT; PLATELET MORPHOLOGY COMMENT NORMAL (NORMAL)
[2020-02-03] MEDS: LASIX IVP SCH (08:48)
[2020-02-03] MEDS: VANCOMYCIN IV *PREMIX 500 mg/100 ML BAG 500 MG/100 ML PIGGYBACK IV SCH ×3 (08:48→22:30)
[2020-02-03] MEDS: PROTONIX INJ 40 MG VIAL IVP SCH ×2 (08:48→21:30)
[2020-02-03] MEDS: HEMOCYTE-PLUS PO SCH ×2 (09:20→18:01)
[2020-02-03] MEDS: [UNRECOGNIZED DRUG - OTHER] IV SCH ×3 (09:20)
[2020-02-03] MEDS: CLINIMIX IV SCH ×7 (09:20→23:57)
[2020-02-03] MEDS: K-DUR TAB 20 MEQ PO SCH (09:20)
[2020-02-03] MEDS: MVI IV SCH ×3 (09:20)
--- NOTE | 2020-02-03 15:21 | DR.PROGNOT ---
Hospital Progress Notes - Progress Note for Day of: Progress Note Date: 02/03/20 - Chief Complaint Chief Complaint: no changes ingeneral condition . mild drainage from the large sacral ulcers .no bleeding. oral intake is very poor . Vanco level 19.1..Na 151. BS 486.. Albumin 1.1. WBC 14.3 ..Hgb 8.15 CECY/Crea 27/1.51... Albumin 1 .. BS 304. temp 99 - Past Medical Family Social History Past Med/Fam/Surg Hx: No changes since H&P Allergies: Allergies celecoxib [From Celebrex] Allergy (Verified 02/23/17 12:10) - Review Of Systems ROS: No change since H&P - Vital Signs Vital Signs: Temperature 97.3 F Pulse Rate [Left Radial] 79 Respiratory Rate 18 Blood Pressure [Right Arm] 114/61 Blood Pressure [Left Arm] 109/63 O2 Sat by Pulse Oximetry 97 - Physical Exam Oriented: Normal Eyes: Normal Ear: Normal Nose: Normal Throat: Normal, Red, Dry Cardiovascular: Normal : Normal GI:Auscultation: Normal GI:Palpation: Normal GI: Tenderness: Normal Skin: Wound (large sacral decubitus ulcer 8x8x3 cm with dark base , no necrosis or abscess .. moderate associated cellulitis ) Musculoskeletal: Right, Left, Back:Lumbar, Motor Deficit Psychiatric: Anxiety Affect: Anxious Speech Pattern: Clear, Appropriate - Laboratory and Diagnostics Result Diagrams: 02/03/20 05:30 02/03/20 12:57 Labs: 01/28/20 21:48 Blood Blood Culture - Final 01/28/20 21:30 Stool Stool Culture - Final 01/28/20 21:30 Stool - Final 01/28/20 21:55 Blood Blood Culture - Final Staphylococcus Aureus 01/29/20 15:55 Foot - Left Gram Stain - Final 01/29/20 15:55 Foot - Left Wound Culture - Final Klebsiella Pneumoniae 01/28/20 21:55 Sacral Gram Stain - Final 01/28/20 21:55 Sacral Wound Culture - Final Klebsiella Pneumoniae Escherichia Coli 01/28/20 22:30 Urine,Clean Catch Urine Culture - Final Klebsiella Pneumoniae Pseudomonas Aeruginosa Laboratory WBC 14.3 X10^3/uL (3.6-10.0) H 02/03/20 05:30 RBC 3.10 X10^6/uL (4.7-6.0) L 12/21/20 05:30 Hgb 8.5 g/dL (13.5-18.0) L 02/03/20 05:30 Hct 27.4 % (42.0-54.0) L 02/03/20 05:30 MCV 88.5 fL (80.0-100.0) 02/03/20 05:30 MCH 27.4 pg (27.0-34.0) 02/03/20 05:30 MCHC 31.0 g/dL (33.0-35.0) L 02/03/20 05:30 RDW 20.6 % (11.6-16.5) H 02/03/20 05:30 Plt Count 112 X10^3/uL (150.0-450.0) L 02/03/20 05:30 Plt Count Comment Adequate (ADEQUATE) 02/03/20 05:30 MPV 8.2 fL (7.4-11.0) 02/03/20 05:30 Neut % (Auto) 80.5 % (42.0-75.0) H 02/03/20 05:30 Lymph % (Auto) 9.2 % (21.0-51.0) L 02/03/20 05:30 [place] % (Auto) 7.3 % (0.0-13.0) 02/03/20 05:30 Eos % (Auto) 2.5 % (0.9-2.9) 02/03/20 05:30 Baso % (Auto) 0.5 % (0.2-1.0) 02/03/20 05:30 Neut # (Auto) 11.5 x10^3/uL (2.2-4.8) H 02/03/20 05:30 Lymph # (Auto) 1.3 X10^3/uL (1.3-2.9) 02/03/20 05:30 [place] # (Auto) 1.1 x10^3/uL (0.3-0.8) H 02/03/20 05:30 Eos # (Auto) 0.4 x10^3/uL (0.0-0.2) H 02/03/20 05:30 Baso # (Auto) 0.1 X10^3/uL (0.0-0.1) 02/03/20 05:30 Absolute Nucleated RBC 0.0 /100WBC 02/03/20 05:30 Total Counted 100 02/03/20 05:30 Neutrophils % (Manual) 77 % (39-76) H 02/03/20 05:30 Band Neutrophils % 4 % (0-10) 02/03/20 05:30 Lymphocytes % (Manual) 12 % (13-43) L 02/03/20 05:30 Monocytes % (Manual) 2 % (4-9) L 02/03/20 05:30 Eosinophils % (Manual) 5 % (0-6) 02/03/20 05:30 Plt Morphology Comment Normal (NORMAL) 02/03/20 05:30 RBC Morphology Abnormal (NORMAL) 02/03/20 05:30 Hypochromasia Slight A 02/03/20 05:30 Anisocytosis 1+ A 02/03/20 05:30 Target Cells Few 02/02/20 05:16 Crenated Cell Few 02/02/20 05:16 Sodium 144 mmol/L (136-145) 02/03/20 05:30 Corrected Sodium 151 mmol/L (136-145) H 02/03/20 05:30 Potassium 3.6 mmol/L (3.5-5.1) 02/03/20 05:30 Chloride 111 mmol/L (98-107) H 02/03/20 05:30 Carbon Dioxide 28.5 mmol/L (21-32) 02/03/20 05:30 BUN 28 mg/dL (7-18) H 02/03/20 05:30 Creatinine 1.51 mg/dL (0.70-1.30) H 02/03/20 05:30 Est GFR (MDRD) Af Amer 59 (>60) 02/03/20 05:30 Est GFR (MDRD) Non-Af 49 (>60) L 02/03/20 05:30 Glucose 486 mg/dL (65-99) H 02/03/20 12:57 POC Glucose (mg/dL) 428 mg/dL (65-99) H 02/03/20 12:41 Lactic Acid 0.8 mmol/L (0.4-2.0) 02/02/20 11:40 Calcium 7.9 mg/dL (8.5-10.1) L 02/03/20 05:30 Corrected Calcium 10.2 mg/dL (8.5-10.1) H 02/03/20 05:30 Magnesium 1.9 mg/dL (1.7-2.9) 02/02/20 05:16 Iron 14 ug/dL (50-175) L 01/29/20 09:17 Transferrin 59 mg/dL (202-364) L 01/29/20 09:17 Ferritin 1279 ng/mL (26-388) H 01/29/20 09:17 Total Bilirubin 0.30 mg/dL (0.2-1.0) 02/03/20 05:30 AST 11 Units/L (15-37) L 02/03/20 05:30 ALT 9 Units/L (12-78) L 02/03/20 05:30 Alkaline Phosphatase 65 Units/L (46-116) 02/03/20 05:30 Total Protein 4.4 g/dL (6.4-8.2) L 02/03/20 05:30 Albumin 1.1 g/dL (3.4-5.0) L 02/03/20 05:30 Globulin 3.3 g/dL (2.5-4.5) 02/03/20 05:30 Albumin/Globulin Ratio 0.3 Ratio (1.1-2.1) L 02/03/20 05:30 Prealbumin 4.6 mg/dL (18-35.7) L 02/01/20 05:41 Vitamin B12 1430 pg/mL (193-986) H 01/29/20 09:17 Folate 9.9 ng/mL (>8.6) 01/29/20 09:17 Specimen Type Clean catch urine 01/28/20 22:30 Urine Color [place] (YELLOW) 01/28/20 22:30 Urine Appearance Slightly hazy (CLEAR) 01/28/20 22: Urine pH 5.0 (5.0 - 8.0) 01/28/20 22: Ur Specific [place] 1.020 (1.000-1.030) 01/28/20 22:30 Urine Protein 2+ (NEGATIVE) 01/28/20 22:30 Urine Glucose (UA) Negative (NEGATIVE) 01/28/20 22: Urine Ketones Negative (NEGATIVE) 01/28/20 22:30 Urine Occult Blood 5+ (NEGATIVE) 01/28/20 22:30 Urine Nitrite Negative (NEGATIVE) 01/28/20 22:30 Urine Bilirubin Negative (NEGATIVE) 01/28/20 22:30 Urine Urobilinogen Normal (NORMAL) 01/28/20 22:30 Ur Leukocyte Esterase 1+ (NEGATIVE) 01/28/20 22:30 Urine RBC 3-5 /HPF (0-3) A 01/28/20 22:30 Urine WBC 0-2 /HPF (0-5) 01/28/20 22:30 Ur Squamous Epith Cells Moderate /HPF (NEGATIVE) 01/28/20 22:30 Amorphous Sediment 1+ /HPF (NEGATIVE) 01/28/20 22:30 Urine Bacteria 2+ /HPF (NEGATIVE) 01/28/20 22:30 Hyaline Casts Many /LPF (NEGATIVE) 01/28/20 22:30 Urine Mucus Moderate /HPF (NEGATIVE) 01/28/20 22:30 Urine Sperm Few /HPF (NEGATIVE) 01/28/20 22:30 Ur Culture Indicated? Yes/culture set up 01/28/20 22:30 Stool Description 50g green watery 01/28/20 21:30 Stool Description 50g green watery 01/28/20 21:30 Stl Occult Blood (IFOB) Positive (NEGATIVE) A 01/28/20 21:30 Stool for White Cells Positive (NEGATIVE) A 01/28/20 21:30 Stl C. diff Tox B Gene Positive (NEGATIVE) A 01/28/20 21:30 Stl C. diff 027-NAP1-BI Positive (NEGATIVE) A 01/28/20 21:30 Vancomycin Trough 38.8 ug/mL (-20) H* 01/30/20 20:36 Random Vancomycin 19.1 ug/mL 02/02/20 05:16 C. difficile Toxin A&B Positive (NEGATIVE) A 01/28/20 21:30 Cryptosporid parvum Ag Negative (NEGATIVE) 01/28/20 21:30 Giardia lamblia Ag Negative (NEGATIVE) 01/28/20 21:30 SARS CoV-2 RNA Rapid PHI Negative (NEGATIVE) 01/28/20 19:04 Tissue Pathology To follow 01/29/20 15:55 Blood Type AB POSITIVE 01/29/20 18:26 Antibody Screen Negative 01/29/20 18:26 Crossmatch See Detail 01/29/20 18:26 - Assessment and Plan 1: sepsis from large decubitus ulcers,maybe [place] ulcers .. cellulitis . poor oral intake and malnutrition . DM. same local care , IV ATB . nutritional support maybe placement of PEG tube . prognosis is poor .. - Problem Patient Problems: Patient Problems Decubitus ulcer of sacral region, stage 4 (Acute) L89.154 UTI (urinary tract infection) (Acute) N39.0 Diarrhea (Acute) R19.7 Weakness generalized (Acute) R53.1 COPD (chronic obstructive pulmonary disease) (Chronic) J44.9 Diabetes (Chronic) E11.9
[2020-02-03] MEDS: POTASSIUM CHLORIDE IV SCH ×4 (17:13→23:57)
[2020-02-03] MEDS: SNACK - Diabetic Appropriate PO SCH (19:49)
[2020-02-03 20:22] LABS: CREATININE 1.39 mg/dL (0.70-1.30); VANCOMYCIN,TROUGH 18.1 ug/mL (15-20)
[2020-02-03] MEDS: COLACE CAP 100 MG PO SCH (21:15)
[2020-02-03] MEDS: CRESTOR TAB 10 MG PO SCH (21:30)
[2020-02-03] MEDS: LIPOSYN III 20% 100ML 100 ML IV SCH (21:30)
[2020-02-04] MEDS: HumuLIN R SUBCUT PRN ×2 (00:02→23:15)
[2020-02-04] MEDS: MERREM VIAL 500 MG in NS 100 ML IV + SPIKE MINIBAG* 100 ML IV SCH ×3 (06:15→22:45)
[2020-02-04] MEDS: NS 1000 ML 1,000 ML IV SCH ×2 (06:15→23:13)
[2020-02-04 06:45] LABS: BASOPHILS % (AUTO) 0.2 % (0.2-1.0); EOSINOPHILS # (AUTO) 0.5 x10^3/uL (0.0-0.2); EOSINOPHILS % (AUTO) 3.6 % (0.9-2.9); HEMOGLOBIN 8.7 g/dL (13.5-18.0); LYMPHOCYTES # (AUTO) 1.2 X10^3/uL (1.3-2.9); LYMPHOCYTES % (AUTO) 8.3 % (21.0-51.0); MEAN CORPUSCULAR HEMOGLOBIN 28.1 pg (27.0-34.0); MEAN CORPUSCULAR HGB CONC 32.2 g/dL (33.0-35.0); MEAN CORPUSCULAR VOLUME 87.4 fL (80.0-100.0); MEAN PLATELET VOLUME 8.4 fL (7.4-11.0); MONOCYTES # (AUTO) 0.9 x10^3/uL (0.3-0.8); MONOCYTES % (AUTO) 5.8 % (0.0-13.0); NEUTROPHILS # (AUTO) 12.4 x10^3/uL (2.2-4.8); NEUTROPHILS % (AUTO) 82.1 % (42.0-75.0); PLATELET COUNT 103 X10^3/uL (150.0-450.0); RED BLOOD COUNT 3.09 X10^6/uL (4.7-6.0); RED CELL DISTRIBUTION WIDTH 19.6 % (11.6-16.5); WHITE BLOOD COUNT 15.1 X10^3/uL (3.6-10.0)
[2020-02-04 06:53] LABS: ALANINE AMINOTRANSFERASE 12 Units/L (12-78); ALBUMIN 1.1 g/dL (3.4-5.0); ALKALINE PHOSPHATASE 56 Units/L (46-116); ASPARTATE AMINO TRANSFERASE 12 Units/L (15-37); BLOOD UREA NITROGEN 25 mg/dL (7-18); CARBON DIOXIDE 27.8 mmol/L (21-32); CHLORIDE 112 mmol/L (98-107); COR CA(FOR HYPOALB) 10.3 mg/dL (8.5-10.1); COR NA(FOR HYPERGLY) 147 mmol/L (136-145); SODIUM 145 mmol/L (136-145); TOTAL PROTEIN 4.5 g/dL (6.4-8.2); eGFR NON BLACK RACES > 60 (>60)
[2020-02-04 07:07] LABS: BAND NEUTROPHILS % 7 % (0-10)
[2020-02-04 07:08] LABS: ANISOCYTOSIS SLIGHT; BURR CELLS PRESENT; CRENATED RBC SLIGHT; PLATELET MORPHOLOGY COMMENT NORMAL (NORMAL)
[2020-02-04] MEDS: VANCOMYCIN IV *PREMIX 500 mg/100 ML BAG 500 MG/100 ML PIGGYBACK IV SCH ×2 (09:32→21:50)
[2020-02-04] MEDS: LASIX IVP SCH (09:32)
[2020-02-04] MEDS: PROTONIX INJ 40 MG VIAL IVP SCH ×2 (09:32→22:08)
[2020-02-04] MEDS ORDERED: TYLENOL 325 MG TAB PO PRN (11:17)
[2020-02-04] MEDS: OFIRMEV IV 1000 MG VIAL 1,000 MG/100 ML VIAL IV PRN (11:39)
[2020-02-04] MEDS: [UNRECOGNIZED DRUG - OTHER] IV SCH ×6 (13:12→20:25)
[2020-02-04] MEDS: POTASSIUM CHLORIDE IV SCH ×6 (13:12→20:25)
[2020-02-04] MEDS: CLINIMIX IV SCH ×6 (13:12→20:25)
[2020-02-04] MEDS: VOLTAREN 1 % GEL MULTI DOSE TUBE TOP PRN ×2 (13:13→21:38)
[2020-02-04] MEDS: HEMOCYTE-PLUS PO SCH ×2 (13:14→18:50)
[2020-02-04] MEDS: K-DUR TAB 20 MEQ PO SCH (13:14)
[2020-02-04] MEDS: DOPAMINE IV PREMIX 400 MG/250 ML 400 MG/250 ML BAG IV PRN (13:49)
[2020-02-04] MEDS ORDERED: STERILE WATER IRRIGATION IR ONE (15:21)
[2020-02-04] MEDS: MILK OF MAGNESIA PO SCH ×2 (15:52→22:00)
[2020-02-04] MEDS: SNACK - Diabetic Appropriate PO SCH (19:15)
[2020-02-04] MEDS: LIPOSYN III 20% 100ML 100 ML IV SCH (21:58)
[2020-02-04] MEDS: CRESTOR TAB 10 MG PO SCH (22:00)
[2020-02-04] MEDS: COLACE CAP 100 MG PO SCH (23:11)
[2020-02-05] MEDS: [UNRECOGNIZED DRUG - OTHER] IV SCH ×12 (02:05→22:24)
[2020-02-05] MEDS: CLINIMIX IV SCH ×12 (02:05→22:24)
[2020-02-05] MEDS: POTASSIUM CHLORIDE IV SCH ×12 (02:05→22:24)
[2020-02-05] MEDS: MERREM VIAL 500 MG in NS 100 ML IV + SPIKE MINIBAG* 100 ML IV SCH ×3 (05:00→22:15)
--- NOTE | 2020-02-05 05:17 | RAD ---
HISTORYCHFSTUDYCHEST, 1 [id number]/20/2020FINDINGSThe trachea is midline. The cardiac silhouette is enlarged, similar to prior exam. Perihilar basilar opacity/infiltrates, not significantly changed. Left pleural effusion... The bony thorax is unremarkable. Right IJ CVC again seen.IMPRESSIONNo appreciable interval change.Electronically signed by: Katarina Mcfarlane (Feb 05, 2020 05:16:07)
[2020-02-05] MEDS ORDERED: HYDROGEN PEROXIDE 3% ONE (05:23)
[2020-02-05] MEDS: HumuLIN R SUBCUT PRN ×4 (06:13→21:30)
[2020-02-05] MEDS: NS 1000 ML 1,000 ML IV SCH ×2 (06:14→12:27)
[2020-02-05 06:16] LABS: BASOPHILS % (AUTO) 0.3 % (0.2-1.0); EOSINOPHILS # (AUTO) 0.5 x10^3/uL (0.0-0.2); EOSINOPHILS % (AUTO) 3.6 % (0.9-2.9); HEMATOCRIT 25.9 % (42.0-54.0); HEMOGLOBIN 8.2 g/dL (13.5-18.0); LYMPHOCYTES # (AUTO) 1.4 X10^3/uL (1.3-2.9); LYMPHOCYTES % (AUTO) 10.4 % (21.0-51.0); MEAN CORPUSCULAR HGB CONC 31.4 g/dL (33.0-35.0); MEAN PLATELET VOLUME 9.1 fL (7.4-11.0); MONOCYTES # (AUTO) 0.7 x10^3/uL (0.3-0.8); MONOCYTES % (AUTO) 4.9 % (0.0-13.0); NEUTROPHILS # (AUTO) 10.7 x10^3/uL (2.2-4.8); NEUTROPHILS % (AUTO) 80.8 % (42.0-75.0); PLATELET COUNT 91 X10^3/uL (150.0-450.0); RED BLOOD COUNT 2.92 X10^6/uL (4.7-6.0); RED CELL DISTRIBUTION WIDTH 20.6 % (11.6-16.5); WHITE BLOOD COUNT 13.3 X10^3/uL (3.6-10.0)
[2020-02-05] MEDS: VOLTAREN 1 % GEL MULTI DOSE TUBE TOP PRN (06:17)
[2020-02-05 06:42] LABS: ALANINE AMINOTRANSFERASE 9 Units/L (12-78); ALKALINE PHOSPHATASE 50 Units/L (46-116); ASPARTATE AMINO TRANSFERASE 15 Units/L (15-37); BLOOD UREA NITROGEN 25 mg/dL (7-18); CALCIUM 7.9 mg/dL (8.5-10.1); CARBON DIOXIDE 26.1 mmol/L (21-32); CHLORIDE 110 mmol/L (98-107); COR CA(FOR HYPOALB) 10.3 mg/dL (8.5-10.1); COR NA(FOR HYPERGLY) 147 mmol/L (136-145); CREATININE 1.06 mg/dL (0.70-1.30); SODIUM 142 mmol/L (136-145); TOTAL PROTEIN 4.3 g/dL (6.4-8.2); eGFR NON BLACK RACES > 60 (>60)
[2020-02-05 06:53] LABS: HYPOCHROMASIA 1+; PLATELET MORPHOLOGY COMMENT NORMAL (NORMAL)
[2020-02-05 06:54] LABS: ANISOCYTOSIS 1+; BURR CELLS 1+
[2020-02-05] MEDS: K-DUR TAB 20 MEQ PO SCH ×2 (08:29→09:29)
[2020-02-05] MEDS: PROTONIX INJ 40 MG VIAL IVP SCH ×2 (08:30→21:30)
[2020-02-05] MEDS: VANCOMYCIN IV *PREMIX 500 mg/100 ML BAG 500 MG/100 ML PIGGYBACK IV SCH (08:30)
[2020-02-05] MEDS: LASIX IVP SCH (08:30)
[2020-02-05] MEDS: MILK OF MAGNESIA PO SCH ×2 (08:30→21:30)
[2020-02-05] MEDS: HEMOCYTE-PLUS PO SCH ×3 (08:48→17:28)
--- NOTE | 2020-02-05 14:58 | DR.PROGNOT ---
Hospital Progress Notes - Progress Note for Day of: Progress Note Date: 02/05/20 - Chief Complaint Chief Complaint: much better today . alert, talking and more coaperative . still on Dopamin and IV ATB . WBC 13.3 Hgb 8.2 Albumin 1.0. BUN 25 Creat 1.06. Vanco 18.1 - Past Medical Family Social History Past Med/Fam/Surg Hx: No changes since H&P Allergies: Allergies celecoxib [From Celebrex] Allergy (Verified 02/23/17 12:10) - Review Of Systems ROS: No change since H&P - Vital Signs Vital Signs: Temperature 98.1 F Pulse Rate [Left Radial] 76 Respiratory Rate 20 Blood Pressure [Right Arm] 114/61 Blood Pressure [Left Arm] 91/56 O2 Sat by Pulse Oximetry 93 - Physical Exam Oriented: Normal Eyes: Normal Ear: Normal Nose: Normal Throat: Normal, Red, Dry Cardiovascular: Normal : Normal GI:Auscultation: Normal GI:Palpation: Normal GI: Tenderness: Normal Skin: Wound (large sacral decubitus ulcer 8x8x3 cm with dark base , no necrosis or abscess .. moderate associated cellulitis ) Musculoskeletal: Right, Left, Back:Lumbar, Motor Deficit Psychiatric: Anxiety Affect: Anxious Speech Pattern: Clear, Appropriate - Laboratory and Diagnostics Result Diagrams: 02/05/20 05:12 02/05/20 05:12 Labs: 02/02/20 11:40 Blood Blood Culture - Preliminary 02/02/20 11:30 Blood Blood Culture - Preliminary 01/28/20 21:48 Blood Blood Culture - Final 01/28/20 21:30 Stool Stool Culture - Final 01/28/20 21:30 Stool - Final 01/28/20 21:55 Blood Blood Culture - Final Staphylococcus Aureus 01/29/20 15:55 Foot - Left Gram Stain - Final 01/29/20 15:55 Foot - Left Wound Culture - Final Klebsiella Pneumoniae 01/28/20 21:55 Sacral Gram Stain - Final 01/28/20 21:55 Sacral Wound Culture - Final Klebsiella Pneumoniae Escherichia Coli 01/28/20 22:30 Urine,Clean Catch Urine Culture - Final Klebsiella Pneumoniae Pseudomonas Aeruginosa Laboratory WBC 13.3 X10^3/uL (3.6-10.0) H 02/05/20 05:12 RBC 2.92 X10^6/uL (4.7-6.0) L 02/05/20 05:12 Hgb 8.2 g/dL (13.5-18.0) L 02/05/20 05:12 Hct 25.9 % (42.0-54.0) L 02/05/20 05:12 MCV 89.0 fL (80.0-100.0) 02/05/20 05:12 MCH 28.0 pg (27.0-34.0) 02/05/20 05:12 MCHC 31.4 g/dL (33.0-35.0) L 02/05/20 05:12 RDW 20.6 % (11.6-16.5) H 02/05/20 05:12 Plt Count 91 X10^3/uL (150.0-450.0) L 02/05/20 05:12 Plt Count Comment Decreased (ADEQUATE) 02/05/20 05:12 MPV 9.1 fL (7.4-11.0) 02/05/20 05:12 Neut % (Auto) 80.8 % (42.0-75.0) H 02/05/20 05:12 Lymph % (Auto) 10.4 % (21.0-51.0) L 02/05/20 05:12 [place] % (Auto) 4.9 % (0.0-13.0) 02/05/20 05:12 Eos % (Auto) 3.6 % (0.9-2.9) H 02/05/20 05:12 Baso % (Auto) 0.3 % (0.2-1.0) 02/05/20 05:12 Neut # (Auto) 10.7 x10^3/uL (2.2-4.8) H 02/05/20 05:12 Lymph # (Auto) 1.4 X10^3/uL (1.3-2.9) 02/05/20 05:12 [place] # (Auto) 0.7 x10^3/uL (0.3-0.8) 02/05/20 05:12 Eos # (Auto) 0.5 x10^3/uL (0.0-0.2) H 02/05/20 05:12 Baso # (Auto) 0.0 X10^3/uL (0.0-0.1) 02/05/20 05:12 Absolute Nucleated RBC 0.0 /100WBC 02/05/20 05:12 Total Counted 100 02/04/20 05:42 Neutrophils % (Manual) 81 % (39-76) H 02/04/20 05:42 Band Neutrophils % 7 % (0-10) 02/04/20 05:42 Lymphocytes % (Manual) 4 % (13-43) L 02/04/20 05:42 Monocytes % (Manual) 2 % (4-9) L 02/04/20 05:42 Eosinophils % (Manual) 6 % (0-6) 02/04/20 05:42 Plt Morphology Comment Normal (NORMAL) 02/05/20 05:12 RBC Morphology Abnormal (NORMAL) 02/05/20 05:12 Hypochromasia 1+ A 02/05/20 05:12 Anisocytosis 1+ A 02/05/20 05:12 Target Cells Few 02/02/20 05:16 Crenated Cell Slight A 02/04/20 05:42 [place] Cells 1+ A 02/05/20 05:12 Sodium 142 mmol/L (136-145) 02/05/20 05:12 Corrected Sodium 147 mmol/L (136-145) H 02/05/20 05:12 Potassium 3.8 mmol/L (3.5-5.1) 02/05/20 05:12 Chloride 110 mmol/L (98-107) H 02/05/20 05:12 Carbon Dioxide 26.1 mmol/L (21-32) 02/05/20 05:12 BUN 25 mg/dL (7-18) H 02/05/20 05:12 Creatinine 1.06 mg/dL (0.70-1.30) 02/05/20 05:12 Est GFR (MDRD) Af Amer > 60 (>60) 02/05/20 05:12 Est GFR (MDRD) Non-Af > 60 (>60) 02/05/20 05:12 Glucose 325 mg/dL (65-99) H 02/05/20 05:12 POC Glucose (mg/dL) 277 mg/dL (65-99) H 02/05/20 11:59 Lactic Acid 0.8 mmol/L (0.4-2.0) 02/02/20 11:40 Calcium 7.9 mg/dL (8.5-10.1) L 02/05/20 05:12 Corrected Calcium 10.3 mg/dL (8.5-10.1) H 02/05/20 05:12 Magnesium 1.9 mg/dL (1.7-2.9) 02/02/20 05:16 Iron 14 ug/dL (50-175) L 01/29/20 09:17 Transferrin 59 mg/dL (202-364) L 01/29/20 09:17 Ferritin 1279 ng/mL (26-388) H 01/29/20 09:17 Total Bilirubin 0.30 mg/dL (0.2-1.0) 02/05/20 05:12 AST 15 Units/L (15-37) 02/05/20 05:12 ALT 9 Units/L (12-78) L 02/05/20 05:12 Alkaline Phosphatase 50 Units/L (46-116) 02/05/20 05:12 Total Protein 4.3 g/dL (6.4-8.2) L 02/05/20 05:12 Albumin 1.0 g/dL (3.4-5.0) L 02/05/20 05:12 Globulin 3.3 g/dL (2.5-4.5) 02/05/20 05:12 Prealbumin 4.6 mg/dL (18-35.7) L 02/01/20 05:41 Albumin/Globulin Ratio 0.3 Ratio (1.1-2.1) L 02/05/20 05:12 Vitamin B12 1430 pg/mL (193-986) H 01/29/20 09:17 Folate 9.9 ng/mL (>8.6) 01/29/20 09:17 Specimen Type Clean catch urine 01/28/20 22:30 Urine Color [place] (YELLOW) 01/28/20 22: Urine Appearance Slightly hazy (CLEAR) 01/28/20 22: Urine pH 5.0 (5.0 - 8.0) 01/28/20 22:30 Ur Specific [place] 1.020 (1.000-1.030) 01/28/20 22:30 Urine Protein 2+ (NEGATIVE) 01/28/20 22:30 Urine Glucose (UA) Negative (NEGATIVE) 01/28/20 22:30 Urine Ketones Negative (NEGATIVE) 01/28/20 22:30 Urine Occult Blood 5+ (NEGATIVE) 01/28/20 22:30 Urine Nitrite Negative (NEGATIVE) 01/28/20 22:30 Urine Bilirubin Negative (NEGATIVE) 01/28/20 22:30 Urine Urobilinogen Normal (NORMAL) 01/28/20 22:30 Ur Leukocyte Esterase 1+ (NEGATIVE) 01/28/20 22:30 Urine RBC 3-5 /HPF (0-3) A 01/28/20 22:30 Urine WBC 0-2 /HPF (0-5) 01/28/20 22:30 Ur Squamous Epith Cells Moderate /HPF (NEGATIVE) 01/28/20 22:30 Amorphous Sediment 1+ /HPF (NEGATIVE) 01/28/20 22:30 Urine Bacteria 2+ /HPF (NEGATIVE) 01/28/20 22:30 Hyaline Casts Many /LPF (NEGATIVE) 01/28/20 22:30 Urine Mucus Moderate /HPF (NEGATIVE) 01/28/20 22:30 Urine Sperm Few /HPF (NEGATIVE) 01/28/20 22:30 Ur Culture Indicated? Yes/culture set up 01/28/20 22:30 Stool Description 50g green watery 01/28/20 21:30 Stool Description 50g green watery 01/28/20 21:30 Stl Occult Blood (IFOB) Positive (NEGATIVE) A 01/28/20 21:30 Stool for White Cells Positive (NEGATIVE) A 01/28/20 21:30 Stl C. diff Tox B Gene Positive (NEGATIVE) A 01/28/20 21:30 Stl C. diff 027-NAP1-BI Positive (NEGATIVE) A 01/28/20 21:30 Vancomycin Trough 18.1 ug/mL (15-20) 02/03/20 20:00 Random Vancomycin 19.1 ug/mL 02/02/20 05:16 C. difficile Toxin A&B Positive (NEGATIVE) A 01/28/20 21:30 Cryptosporid parvum Ag Negative (NEGATIVE) 01/28/20 21:30 Giardia lamblia Ag Negative (NEGATIVE) 01/28/20 21:30 SARS CoV-2 RNA Rapid PHI Negative (NEGATIVE) 01/28/20 19:04 Tissue Pathology To follow 01/29/20 15:55 Blood Type AB POSITIVE 12/16/20 18:26 Antibody Screen Negative 01/29/20 18:26 Crossmatch See Detail 01/29/20 18:26 - Assessment and Plan 1: sepsis from large decubitus ulcers,maybe [place] ulcers .. cellulitis . poor oral intake and malnutrition . DM. same local care , IV ATB . nutritional support. prognosis is poor .. - Problem Patient Problems: Patient Problems Decubitus ulcer of sacral region, stage 4 (Acute) L89.154 UTI (urinary tract infection) (Acute) N39.0 Diarrhea (Acute) R19.7 Weakness generalized (Acute) R53.1 COPD (chronic obstructive pulmonary disease) (Chronic) J44.9 Diabetes (Chronic) E11.9
[2020-02-05] MEDS: DOPAMINE IV PREMIX 400 MG/250 ML 400 MG/250 ML BAG IV PRN (19:07)
[2020-02-05 20:52] LABS: CREATININE 1.02 mg/dL (0.70-1.30); VANCOMYCIN,TROUGH 17.2 ug/mL (15-20)
[2020-02-05] MEDS: LIPOSYN III 20% 100ML 100 ML IV SCH (21:30)
[2020-02-05] MEDS: CRESTOR TAB 10 MG PO SCH (21:30)
[2020-02-06] MEDS: NS 1000 ML 1,000 ML IV SCH ×2 (05:19→16:44)
[2020-02-06] MEDS: MERREM VIAL 500 MG in NS 100 ML IV + SPIKE MINIBAG* 100 ML IV SCH ×3 (05:20→22:30)
[2020-02-06] MEDS: POTASSIUM CHLORIDE IV SCH ×15 (05:49→20:41)
[2020-02-06] MEDS: [UNRECOGNIZED DRUG - OTHER] IV SCH ×3 (05:49)
[2020-02-06] MEDS: CLINIMIX IV SCH ×15 (05:49→20:41)
[2020-02-06 06:25] LABS: BASOPHILS # (AUTO) 0.1 X10^3/uL (0.0-0.1); BASOPHILS % (AUTO) 0.4 % (0.2-1.0); EOSINOPHILS # (AUTO) 0.7 x10^3/uL (0.0-0.2); EOSINOPHILS % (AUTO) 4.4 % (0.9-2.9); HEMATOCRIT 24.2 % (42.0-54.0); HEMOGLOBIN 7.6 g/dL (13.5-18.0); LYMPHOCYTES # (AUTO) 1.2 X10^3/uL (1.3-2.9); LYMPHOCYTES % (AUTO) 7.1 % (21.0-51.0); MEAN CORPUSCULAR HEMOGLOBIN 28.1 pg (27.0-34.0); MEAN CORPUSCULAR HGB CONC 31.4 g/dL (33.0-35.0); MEAN CORPUSCULAR VOLUME 89.4 fL (80.0-100.0); MEAN PLATELET VOLUME 9.1 fL (7.4-11.0); MONOCYTES # (AUTO) 0.6 x10^3/uL (0.3-0.8); MONOCYTES % (AUTO) 3.8 % (0.0-13.0); NEUTROPHILS # (AUTO) 14.1 x10^3/uL (2.2-4.8); NEUTROPHILS % (AUTO) 84.3 % (42.0-75.0); PLATELET COUNT 104 X10^3/uL (150.0-450.0); RED BLOOD COUNT 2.71 X10^6/uL (4.7-6.0); RED CELL DISTRIBUTION WIDTH 20.5 % (11.6-16.5); WHITE BLOOD COUNT 16.7 X10^3/uL (3.6-10.0)
[2020-02-06 06:50] LABS: ALANINE AMINOTRANSFERASE 10 Units/L (12-78); ALBUMIN 1.1 g/dL (3.4-5.0); ALKALINE PHOSPHATASE 56 Units/L (46-116); ASPARTATE AMINO TRANSFERASE 18 Units/L (15-37); BLOOD UREA NITROGEN 28 mg/dL (7-18); CALCIUM 7.8 mg/dL (8.5-10.1); CARBON DIOXIDE 23.5 mmol/L (21-32); CHLORIDE 108 mmol/L (98-107); COR CA(FOR HYPOALB) 10.1 mg/dL (8.5-10.1); COR NA(FOR HYPERGLY) 141 mmol/L (136-145); CREATININE 0.86 mg/dL (0.70-1.30); SODIUM 137 mmol/L (136-145); TOTAL PROTEIN 4.4 g/dL (6.4-8.2); eGFR NON BLACK RACES > 60 (>60)
[2020-02-06 07:06] LABS: ANISOCYTOSIS 1+; HYPOCHROMASIA 1+; PLATELET MORPHOLOGY COMMENT NORMAL (NORMAL)
[2020-02-06] MEDS: [UNRECOGNIZED DRUG - OTHER] IV SCH ×12 (08:21→20:41)
[2020-02-06] MEDS: LASIX IVP SCH (08:21)
[2020-02-06] MEDS: K-DUR TAB 20 MEQ PO SCH (08:21)
[2020-02-06] MEDS: HEMOCYTE-PLUS PO SCH ×2 (08:21→17:45)
[2020-02-06] MEDS: MILK OF MAGNESIA PO SCH ×2 (08:24→20:45)
[2020-02-06] MEDS: PROTONIX INJ 40 MG VIAL IVP SCH ×2 (08:25→20:45)
[2020-02-06] MEDS: VANCOMYCIN IV *PREMIX 500 mg/100 ML BAG 500 MG/100 ML PIGGYBACK IV SCH ×2 (08:25→20:45)
[2020-02-06] MEDS: HumuLIN R SUBCUT PRN ×3 (11:30→20:22)
[2020-02-06] MEDS ORDERED: K-DUR TAB 20 MEQ PO PRN (11:48)
[2020-02-06] MEDS: MAGNESIUM SULFATE 1 GRAM/100 mL PREMIX 1 GM/100 ML BAG IV PRN ×2 (12:52→16:45)
[2020-02-06] MEDS: SNACK - Diabetic Appropriate PO SCH (20:25)
[2020-02-06] MEDS: COLACE CAP 100 MG PO SCH (20:42)
[2020-02-06] MEDS: CRESTOR TAB 10 MG PO SCH (20:44)
[2020-02-06] MEDS: LIPOSYN III 20% 100ML 100 ML IV SCH (20:44)
[2020-02-06] MEDS ORDERED: COLACE CAP 100 MG PO SCH (21:00)
[2020-02-07] MEDS: MERREM VIAL 500 MG in NS 100 ML IV + SPIKE MINIBAG* 100 ML IV SCH ×2 (05:41→13:17)
[2020-02-07] MEDS: HumuLIN R SUBCUT PRN (06:00)
[2020-02-07 06:16] LABS: BASOPHILS % (AUTO) 0.1 % (0.2-1.0); EOSINOPHILS # (AUTO) 0.4 x10^3/uL (0.0-0.2); HEMATOCRIT 23.8 % (42.0-54.0); HEMOGLOBIN 7.4 g/dL (13.5-18.0); LYMPHOCYTES % (AUTO) 4.8 % (21.0-51.0); MEAN CORPUSCULAR VOLUME 90.6 fL (80.0-100.0); MEAN PLATELET VOLUME 9.2 fL (7.4-11.0); MONOCYTES # (AUTO) 0.7 x10^3/uL (0.3-0.8); MONOCYTES % (AUTO) 3.1 % (0.0-13.0); NEUTROPHILS # (AUTO) 19.4 x10^3/uL (2.2-4.8); PLATELET COUNT 112 X10^3/uL (150.0-450.0); RED BLOOD COUNT 2.62 X10^6/uL (4.7-6.0); RED CELL DISTRIBUTION WIDTH 20.5 % (11.6-16.5); WHITE BLOOD COUNT 21.5 X10^3/uL (3.6-10.0)
[2020-02-07 06:36] LABS: ALANINE AMINOTRANSFERASE 19 Units/L (12-78); ALBUMIN 1.1 g/dL (3.4-5.0); ALKALINE PHOSPHATASE 92 Units/L (46-116); ASPARTATE AMINO TRANSFERASE 37 Units/L (15-37); BLOOD UREA NITROGEN 33 mg/dL (7-18); CALCIUM 7.9 mg/dL (8.5-10.1); CARBON DIOXIDE 25.4 mmol/L (21-32); CHLORIDE 107 mmol/L (98-107); COR CA(FOR HYPOALB) 10.2 mg/dL (8.5-10.1); COR NA(FOR HYPERGLY) 139 mmol/L (136-145); CREATININE 0.91 mg/dL (0.70-1.30); SODIUM 137 mmol/L (136-145); TOTAL PROTEIN 4.7 g/dL (6.4-8.2); eGFR NON BLACK RACES > 60 (>60)
[2020-02-07] MEDS: NS 1000 ML 1,000 ML IV SCH ×2 (06:57→17:16)
[2020-02-07 07:35] LABS: ANISOCYTOSIS 1+; BAND NEUTROPHILS % 4 % (0-10); PLATELET MORPHOLOGY COMMENT NORMAL (NORMAL)
[2020-02-07 07:44] LABS: CREATININE 0.95 mg/dL (0.70-1.30); VANCOMYCIN,TROUGH 17.4 ug/mL (15-20)
[2020-02-07] MEDS: HEMOCYTE-PLUS PO SCH (08:41)
[2020-02-07] MEDS: MILK OF MAGNESIA PO SCH (08:41)
[2020-02-07] MEDS: LASIX IVP SCH (08:41)
[2020-02-07] MEDS: PROTONIX INJ 40 MG VIAL IVP SCH (08:41)
[2020-02-07] MEDS: VANCOMYCIN IV *PREMIX 500 mg/100 ML BAG 500 MG/100 ML PIGGYBACK IV SCH (08:42)
--- NOTE | 2020-02-07 09:18 | PCM.PROG ---
Progress Note Progress Note for Day of Date of Exam: 02/07/20 Subjective Subjective: Pt is a 74-year-old white male admitted for sepsis due to a large sacral decubitus ulcer. This morning he is resting comfortably in bed. No acute events overnight. However, he is requiring supplemental oxygen, on a non- rebreather at 100%. He is also requiring dopamine gtt due to severe hypotension that is being titrated per protocol. Attempt to wean off dopamine has so far resulted in significant decrease in blood pressure. His blood pressure is now stable on drip. Treatment course includes: Antibiotics: Vancomycin and Meropenem, peripheral nutrition, Sliding scale insulin coverage. Labs/imaging: WBC 21.5, Hgb 7.4, Plt 112, Na 137, K 4.2, Cr 0.95, Glucose 188, Wound Cultures: Klebsiella pneumoniae, Urine culture: Klebsiella pneumoniae and Pseudomonas aur. , Blood culture no growth to date. Will continue antibiotics, pressure support, and closely monitor patinet. Follow up labs/imaging in the morning. Past Medical Family Social History Past Med/Fam/Surg Hx: No changes since H&P Allergies: Allergies celecoxib [From Celebrex] Allergy (Verified 02/23/17 12:10) Review of Systems ROS: No change since H&P Vital Signs and I&O's Vital Signs: Temperature 98.4 F Pulse Rate [Left Radial] 77 Respiratory Rate 20 Blood Pressure [Right Arm] 114/61 Blood Pressure [Left Arm] 105/58 O2 Sat by Pulse Oximetry 100 Intake and Output: Intake & Output 02/04/20 02/05/20 02/06/20 02/07/20 23:59 23:59 23:59 23:59 Intake Total 1454 / 1454 3810 / 3810 2410 / 2410 699 / 699 Output Total 1725 / 1725 725 / 725 850 / 850 200 / 200 Balance -271 / -271 3085 / 3085 1560 / 1560 499 / 499 Physical Exam Oriented: Normal Eyes: Normal Ear: Normal Nose: Normal Throat: Normal, Red and Dry Respiratory: Diminished Cardiovascular: Normal : Normal Auscultation: Bowel Sounds: Normal Tenderness: Normal Skin: Wound (large sacral decubitus ulcer 8x8x3 cm with dark base , no necrosis or abscess .. moderate associated cellulitis ) Musculoskeletal: Right, Left, Back:Lumbar and Motor Deficit Psychiatric: Anxiety Affect: Anxious Speech Pattern: Clear and Appropriate Laboratory and Diagnostics Result Diagrams: 02/07/20 05:15 02/07/20 05:15 Labs: 02/02/20 11:40 Blood Blood Culture - Preliminary 02/02/20 11:30 Blood Blood Culture - Preliminary 01/28/20 21:48 Blood Blood Culture - Final 01/28/20 21:30 Stool Stool Culture - Final 01/28/20 21:30 Stool - Final 01/28/20 21:55 Blood Blood Culture - Final Staphylococcus Aureus 01/29/20 15:55 Foot - Left Gram Stain - Final 01/29/20 15:55 Foot - Left Wound Culture - Final Klebsiella Pneumoniae 01/28/20 21:55 Sacral Gram Stain - Final 01/28/20 21:55 Sacral Wound Culture - Final Klebsiella Pneumoniae Escherichia Coli 01/28/20 22:30 Urine,Clean Catch Urine Culture - Final Klebsiella Pneumoniae Pseudomonas Aeruginosa Laboratory WBC 21.5 X10^3/uL (3.6-10.0) H 02/07/20 05:15 RBC 2.62 X10^6/uL (4.7-6.0) L 02/07/20 05:15 Hgb 7.4 g/dL (13.5-18.0) L 02/07/20 05:15 Hct 23.8 % (42.0-54.0) L 02/07/20 05:15 MCV 90.6 fL (80.0-100.0) 02/07/20 05:15 MCH 28.0 pg (27.0-34.0) 02/07/20 05:15 MCHC 31.0 g/dL (33.0-35.0) L 02/07/20 05:15 RDW 20.5 % (11.6-16.5) H 02/07/20 05:15 Plt Count 112 X10^3/uL (150.0-450.0) L 02/07/20 05:15 Plt Count Comment Decreased (ADEQUATE) 02/07/20 05:15 MPV 9.2 fL (7.4-11.0) 02/07/20 05:15 Neut % (Auto) 90.0 % (42.0-75.0) H 02/07/20 05:15 Lymph % (Auto) 4.8 % (21.0-51.0) L 02/07/20 05:15 [place] % (Auto) 3.1 % (0.0-13.0) 02/07/20 05:15 Eos % (Auto) 2.0 % (0.9-2.9) 02/07/20 05:15 Baso % (Auto) 0.1 % (0.2-1.0) L 02/07/20 05:15 Neut # (Auto) 19.4 x10^3/uL (2.2-4.8) H 02/07/20 05:15 Lymph # (Auto) 1.0 X10^3/uL (1.3-2.9) L 02/07/20 05:15 [place] # (Auto) 0.7 x10^3/uL (0.3-0.8) 02/07/20 05:15 Eos # (Auto) 0.4 x10^3/uL (0.0-0.2) H 02/07/20 05:15 Baso # (Auto) 0.0 X10^3/uL (0.0-0.1) 02/07/20 05:15 Absolute Nucleated RBC 0.0 /100WBC 02/07/20 05:15 Total Counted 100 02/07/20 05:15 Neutrophils % (Manual) 86 % (39-76) H 02/07/20 05:15 Band Neutrophils % 4 % (0-10) 02/07/20 05:15 Lymphocytes % (Manual) 5 % (13-43) L 02/07/20 05:15 Monocytes % (Manual) 1 % (4-9) L 02/07/20 05:15 Eosinophils % (Manual) 4 % (0-6) 02/07/20 05:15 Plt Morphology Comment Normal (NORMAL) 02/07/20 05:15 RBC Morphology Abnormal (NORMAL) 02/07/20 05:15 Hypochromasia 1+ A 02/06/20 05:56 Anisocytosis 1+ A 02/07/20 05:15 Target Cells Few 02/02/20 05:16 Crenated Cell Slight A 02/04/20 05:42 [place] Cells 1+ A 02/05/20 05:12 Sodium 137 mmol/L (136-145) 02/07/20 05:15 Corrected Sodium 139 mmol/L (136-145) 02/07/20 05:15 Potassium 4.2 mmol/L (3.5-5.1) 02/07/20 05:15 Chloride 107 mmol/L (98-107) 02/07/20 05:15 Carbon Dioxide 25.4 mmol/L (21-32) 02/07/20 05:15 BUN 33 mg/dL (7-18) H 02/07/20 05:15 Creatinine 0.91 mg/dL (0.70-1.30) 02/07/20 05:15 Creatinine 0.95 mg/dL (0.70-1.30) 02/07/20 05:15 Est GFR (MDRD) Af Amer > 60 (>60) 02/07/20 05:15 Est GFR (MDRD) Non-Af > 60 (>60) 02/07/20 05:15 Glucose 188 mg/dL (65-99) H 02/07/20 05:15 POC Glucose (mg/dL) 182 mg/dL (65-99) H 02/07/20 05:44 Lactic Acid 0.8 mmol/L (0.4-2.0) 02/02/20 11:40 Calcium 7.9 mg/dL (8.5-10.1) L 02/07/20 05:15 Corrected Calcium 10.2 mg/dL (8.5-10.1) H 02/07/20 05:15 Magnesium 2.0 mg/dL (1.7-2.9) 02/07/20 05:15 Iron 14 ug/dL (50-175) L 01/29/20 09:17 Transferrin 59 mg/dL (202-364) L 01/29/20 09:17 Ferritin 1279 ng/mL (26-388) H 01/29/20 09:17 Total Bilirubin 0.40 mg/dL (0.2-1.0) 02/07/20 05:15 AST 37 Units/L (15-37) 02/07/20 05:15 ALT 19 Units/L (12-78) 02/07/20 05:15 Alkaline Phosphatase 92 Units/L (46-116) 02/07/20 05:15 Total Protein 4.7 g/dL (6.4-8.2) L 02/07/20 05:15 Albumin 1.1 g/dL (3.4-5.0) L 02/07/20 05:15 Globulin 3.6 g/dL (2.5-4.5) 02/07/20 05:15 Prealbumin 4.6 mg/dL (18-35.7) L 02/01/20 05:41 Albumin/Globulin Ratio 0.3 Ratio (1.1-2.1) L 02/07/20 05:15 Vitamin B12 1430 pg/mL (193-986) H 01/29/20 09:17 Folate 9.9 ng/mL (>8.6) 01/29/20 09:17 Specimen Type Clean catch urine 01/28/20 22:30 Urine Color [place] (YELLOW) 01/28/20: Urine Appearance Slightly hazy (CLEAR) 01/28/20 22: Urine pH 5.0 (5.0 - 8.0) 01/28/20 22: Ur Specific [place] 1.020 (1.000-1.030) 01/28/20 22: Urine Protein 2+ (NEGATIVE) 01/28/20 22: Urine Glucose (UA) Negative (NEGATIVE) 01/28/20 22: Urine Ketones Negative (NEGATIVE) 01/28/20: Urine Occult Blood 5+ (NEGATIVE) 01/28/20: Urine Nitrite Negative (NEGATIVE) 01/28/20: Urine Bilirubin Negative (NEGATIVE) 01/28/20:30 Urine Urobilinogen Normal (NORMAL) 01/28/20: Ur Leukocyte Esterase 1+ (NEGATIVE) 01/28/20: Urine RBC 3-5 /HPF (0-3) A 01/28/20 22:30 Urine WBC 0-2 /HPF (0-5) 01/28/20 22:30 Ur Squamous Epith Cells Moderate /HPF (NEGATIVE) 01/28/20 22: Amorphous Sediment 1+ /HPF (NEGATIVE) 01/28/20: Urine Bacteria 2+ /HPF (NEGATIVE) 01/28/20 22:30 Hyaline Casts Many /LPF (NEGATIVE) 01/28/20 22:30 Urine Mucus Moderate /HPF (NEGATIVE) 01/28/20 22: Urine Sperm Few /HPF (NEGATIVE) 01/28/20 22:30 Ur Culture Indicated? Yes/culture set up 01/28/20 22:30 Stool Description 50g green watery 01/28/20 21:30 Stool Description 50g green watery 01/28/20 21:30 Stl Occult Blood (IFOB) Positive (NEGATIVE) A 01/28/20 21:30 Stool for White Cells Positive (NEGATIVE) A 01/28/20 21:30 Stl C. diff Tox B Gene Positive (NEGATIVE) A 01/28/20 21:30 Stl C. diff [id number] Positive (NEGATIVE) A 01/28/20 21:30 Vancomycin Trough 17.4 ug/mL () 02/07/20 05:15 Random Vancomycin 19.1 ug/mL 02/02/20 05:16 C. difficile Toxin A&B Positive (NEGATIVE) A 01/28/20 21:30 Cryptosporid parvum Ag Negative (NEGATIVE) 01/28/20 21:30 Giardia lamblia Ag Negative (NEGATIVE) 01/28/20 21:30 SARS CoV-2 RNA Rapid PHI Negative (NEGATIVE) 01/28/20 19:04 Tissue Pathology To follow 01/29/20 15:55 Blood Type AB POSITIVE 01/29/20 18:26 Antibody Screen Negative 01/29/20 18:26 Crossmatch See Detail 01/29/20 18:26 Plan (1) Decubitus ulcer of sacral region, stage 4: Status: Acute Plan: IV HYDRATION, STRICT I&OS IV ANTIBIOTICS SURGERY CONSULTED, WOUND CARE (2) UTI (urinary tract infection): Status: Acute (3) Diarrhea: Status: Acute Qualifiers: Diarrhea type: infectious Qualified Code(s): A09 - Infectious gastroenteritis and colitis, unspecified (4) Weakness generalized: Status: Acute (5) COPD (chronic obstructive pulmonary disease): Status: Chronic (6) Diabetes: Status: Chronic
[2020-02-07] MEDS: [UNRECOGNIZED DRUG - OTHER] IV SCH ×4 (09:30)
[2020-02-07] MEDS: CLINIMIX IV SCH ×4 (09:30)
[2020-02-07] MEDS: POTASSIUM CHLORIDE IV SCH ×4 (09:30)
[2020-02-07] MEDS: K-DUR TAB 20 MEQ PO SCH (09:34)
[2020-02-07 17:11] VITALS: BP 91/50
--- NOTE | 2020-03-14 08:05 | W.DIS.FURT ---
Summary of Discharge Discharge Summary of Date Date of Exam: 02/07/20 Admission Date Date of Admission: 01/29/20 Admission Diagnosis Patient Problems (Updated 01/29/20 @ 14:50 by OSMANY CROWELL) Decubitus ulcer of sacral region, stage 4 (Acute) L89.154 UTI (urinary tract infection) (Acute) N39.0 Diarrhea (Acute) R19.7 Weakness generalized (Acute) R53.1 COPD (chronic obstructive pulmonary disease) (Chronic) J44.9 Diabetes (Chronic) E11.9 Hospital Course: Pt on 02/07/20. Labs: Laboratory Last Values WBC 21.5 X10^3/uL (3.6-10.0) H 02/07/20 05:15 RBC 2.62 X10^6/uL (4.7-6.0) L 02/07/20 05:15 Hgb 7.4 g/dL (13.5-18.0) L 02/07/20 05:15 Hct 23.8 % (42.0-54.0) L 02/07/20 05:15 MCV 90.6 fL (80.0-100.0) 02/07/20 05:15 MCH 28.0 pg (27.0-34.0) 02/07/20 05:15 MCHC 31.0 g/dL (33.0-35.0) L 02/07/20 05:15 RDW 20.5 % (11.6-16.5) H 02/07/20 05:15 Plt Count 112 X10^3/uL (150.0-450.0) L 02/07/20 05:15 Plt Count Comment Decreased (ADEQUATE) 02/07/20 05:15 MPV 9.2 fL (7.4-11.0) 02/07/20 05:15 Neut % (Auto) 90.0 % (42.0-75.0) H 02/07/20 05:15 Lymph % (Auto) 4.8 % (21.0-51.0) L 02/07/20 05:15 [place] % (Auto) 3.1 % (0.0-13.0) 02/07/20 05:15 Eos % (Auto) 2.0 % (0.9-2.9) 02/07/20 05:15 Baso % (Auto) 0.1 % (0.2-1.0) L 02/07/20 05:15 Neut # (Auto) 19.4 x10^3/uL (2.2-4.8) H 02/07/20 05:15 Lymph # (Auto) 1.0 X10^3/uL (1.3-2.9) L 02/07/20 05:15 [place] # (Auto) 0.7 x10^3/uL (0.3-0.8) 02/07/20 05:15 Eos # (Auto) 0.4 x10^3/uL (0.0-0.2) H 02/07/20 05:15 Baso # (Auto) 0.0 X10^3/uL (0.0-0.1) 02/07/20 05:15 Absolute Nucleated RBC 0.0 /100WBC 02/07/20 05:15 Total Counted 100 02/07/20 05:15 Neutrophils % (Manual) 86 % (39-76) H 02/07/20 05:15 Band Neutrophils % 4 % (0-10) 02/07/20 05:15 Lymphocytes % (Manual) 5 % (13-43) L 02/07/20 05:15 Monocytes % (Manual) 1 % (4-9) L 02/07/20 05:15 Eosinophils % (Manual) 4 % (0-6) 02/07/20 05:15 Plt Morphology Comment Normal (NORMAL) 02/07/20 05:15 RBC Morphology Abnormal (NORMAL) 02/07/20 05:15 Hypochromasia 1+ A 02/06/20 05:56 Anisocytosis 1+ A 02/07/20 05:15 Target Cells Few 02/02/20 05:16 Crenated Cell Slight A 02/04/20 05:42 [place] Cells 1+ A 02/05/20 05:12 Sodium 137 mmol/L (136-145) 02/07/20 05:15 Corrected Sodium 139 mmol/L (136-145) 02/07/20 05:15 Potassium 4.2 mmol/L (3.5-5.1) 02/07/20 05:15 Chloride 107 mmol/L (98-107) 02/07/20 05:15 Carbon Dioxide 25.4 mmol/L (21-32) 02/07/20 05:15 BUN 33 mg/dL (7-18) H 02/07/20 05:15 Creatinine 0.91 mg/dL (0.70-1.30) 02/07/20 05:15 Creatinine 0.95 mg/dL (0.70-1.30) 02/07/20 05:15 Est GFR (MDRD) Af Amer > 60 (>60) 02/07/20 05:15 Est GFR (MDRD) Non-Af > 60 (>60) 02/07/20 05:15 Glucose 188 mg/dL (65-99) H 02/07/20 05:15 POC Glucose (mg/dL) 185 mg/dL (65-99) H 02/07/20 16:20 Lactic Acid 0.8 mmol/L (0.4-2.0) 02/02/20 11:40 Calcium 7.9 mg/dL (8.5-10.1) L 02/07/20 05:15 Corrected Calcium 10.2 mg/dL (8.5-10.1) H 02/07/20 05:15 Magnesium 2.0 mg/dL (1.7-2.9) 02/07/20 05:15 Iron 14 ug/dL (50-175) L 01/29/20 09:17 Transferrin 59 mg/dL (202-364) L 01/29/20 09:17 Ferritin 1279 ng/mL (26-388) H 01/29/20 09:17 Total Bilirubin 0.40 mg/dL (0.2-1.0) 02/07/20 05:15 AST 37 Units/L (15-37) 02/07/20 05:15 ALT 19 Units/L (12-78) 02/07/20 05:15 Alkaline Phosphatase 92 Units/L (46-116) 02/07/20 05:15 Total Protein 4.7 g/dL (6.4-8.2) L 02/07/20 05:15 Albumin 1.1 g/dL (3.4-5.0) L 02/07/20 05:15 Globulin 3.6 g/dL (2.5-4.5) 02/07/20 05:15 Prealbumin 4.6 mg/dL (18-35.7) L 02/01/20 05:41 Albumin/Globulin Ratio 0.3 Ratio (1.1-2.1) L 02/07/20 05:15 Vitamin B12 1430 pg/mL (193-986) H 01/29/20 09:17 Folate 9.9 ng/mL (>8.6) 01/29/20 09:17 Specimen Type Clean catch urine 01/28/20 22:30 Urine Color [place] (YELLOW) 01/28/20 22: Urine Appearance Slightly hazy (CLEAR) 01/28/20 22: Urine pH 5.0 (5.0 - 8.0) 01/28/20: Ur Specific [place] 1.020 (1.000-1.030) 01/28/20: Urine Protein 2+ (NEGATIVE) 01/28/20: Urine Glucose (UA) Negative (NEGATIVE) 01/28/20: Urine Ketones Negative (NEGATIVE) 01/28/20: Urine Occult Blood 5+ (NEGATIVE) 01/28/20: Urine Nitrite Negative (NEGATIVE) 01/28/20: Urine Bilirubin Negative (NEGATIVE) 01/28/20: Urine Urobilinogen Normal (NORMAL) 01/28/20: Ur Leukocyte Esterase 1+ (NEGATIVE) 01/28/20: Urine RBC 3-5 /HPF (0-3) A 01/28/20 22:30 Urine WBC 0-2 /HPF (0-5) 01/28/20 22:30 Ur Squamous Epith Cells Moderate /HPF (NEGATIVE) 01/28/20: Amorphous Sediment 1+ /HPF (NEGATIVE) 01/28/20: Urine Bacteria 2+ /HPF (NEGATIVE) 01/28/20: Hyaline Casts Many /LPF (NEGATIVE) 01/28/20: Urine Mucus Moderate /HPF (NEGATIVE) 01/28/20: Urine Sperm Few /HPF (NEGATIVE) 01/28/20: Ur Culture Indicated? Yes/culture set up 01/28/20 22:30 Stool Description 50g green watery 01/28/20 21:30 Stool Description 50g green watery 01/28/20 21:30 Stl Occult Blood (IFOB) Positive (NEGATIVE) A 12/15/20 21:30 Stool for White Cells Positive (NEGATIVE) A 01/28/20 21:30 Stl C. diff Tox B Gene Positive (NEGATIVE) A 01/28/20 21:30 Stl C. diff 027-NAP1-BI Positive (NEGATIVE) A 01/28/20 21:30 Vancomycin Trough 17.4 ug/mL () 02/07/20 05:15 Random Vancomycin 19.1 ug/mL 02/02/20 05:16 C. difficile Toxin A&B Positive (NEGATIVE) A 01/28/20 21:30 Cryptosporid parvum Ag Negative (NEGATIVE) 01/28/20 21:30 Giardia lamblia Ag Negative (NEGATIVE) 01/28/20 21:30 SARS CoV-2 RNA Rapid PHI Negative (NEGATIVE) 01/28/20 19:04 Tissue Pathology To follow 01/29/20 15:55 Blood Type AB POSITIVE 01/29/20 18:26 Antibody Screen Negative 01/29/20 18:26 Crossmatch See Detail 01/29/20 18:26 Reason For Visit: INFECTED SACRAL DECUBITUS ULCER,C-DIFF Discharge Date Discharge Date: 02/07/20 Discharge Diagnosis All Active Problems (Updated 01/29/20 @ 14:50 by OSMANY CROWELL) Decubitus ulcer of sacral region, stage 4 (Acute) UTI (urinary tract infection) (Acute) Hyperglycemia (Acute) Diarrhea (Acute) Weakness generalized (Acute) Edema (Acute) COPD (chronic obstructive pulmonary disease) (Chronic) Diabetes (Chronic) Plan of Treatment: Continue with present treatment and follow up plan. Pt is to keep follow up appointment as instructed and take medications as ordered. Discharge Medications Discharge Medications: celecoxib [From Celebrex] Allergy (Verified 02/23/17 12:10) CONTINUE taking the following medications apixaban [Eliquis] 5 mg PO BID 01/29/20 [History] clindamycin HCl 300 mg PO QID 01/29/20 [History] divalproex 500 mg PO HS 01/29/20 [History] escitalopram oxalate 10 mg PO HS 01/29/20 [History] ferrous sulfate 325 mg PO .BIDPC 01/29/20 [History] furosemide 20 mg PO DAILY 01/29/20 [History] insulin aspart U-100 [Novolog U-100 Insulin aspart] See Rx Instructions .ROUTE .COMPLEX 01/29/20 [History] pantoprazole 40 mg PO DAILYAC 01/29/20 [History] potassium chloride 40 meq PO DAILY 01/29/20 [History] rosuvastatin 20 mg PO HS 01/29/20 [History] Discharge Disposition Discharge Disposition: Discharge Condition: Discharge Plan Discharge Plan Hospital Course: Pt on 02/07/20. Patient Disposition: 20 Condition: Stable Health Concerns: Post Hospitalization: new medications and changes needed to prevent readmission or further decline. Pt educated and given instructions on all concerns. Plan of Treatment: Continue with present treatment and follow up plan. Pt is to keep follow up appointment as instructed and take medications as ordered. Prescriptions: No Action clindamycin HCl 300 mg Capsule 300 mg PO QID RF: 0 divalproex 250 mg tablet,delayed release (DR/EC) 500 mg PO HS RF: 0 insulin aspart U-100 [Novolog U-100 Insulin aspart] 100 unit/mL Solution See Rx Instructions .ROUTE .COMPLEX RF: 0 pantoprazole 40 mg tablet,delayed release (DR/EC) 40 mg PO DAILYAC RF: 0 ferrous sulfate 325 mg (65 mg iron) Tablet 325 mg PO .BIDPC RF: 0 furosemide 20 mg Tablet 20 mg PO DAILY RF: 0 escitalopram oxalate 10 mg tablet 10 mg PO HS RF: 0 rosuvastatin 20 mg tablet 20 mg PO HS RF: 0 Eliquis 5 mg tablet 5 mg PO BID RF: 0 potassium chloride 20 mEq Tablet Extended Release 40 meq PO DAILY RF: 0 Follow ups/Referrals Follow ups/Referrals: JARVIS SUE [Primary Care Provider] - 1 WEEK Instructions Stand Alone Forms: Excuse From Work or School, Precautions for COVID19, Patient Portal, Social Distancing
== END 2020-02-07 21:50 | disposition expired | DRG 853 ==
LOC: OBS → OBSVTOIN 18:59 → MED/SURG 20:10
PROVIDERS: ADMIT Internal Medicine; ATTEND Internal Medicine
DX: A41.01 Sepsis due to Methicillin susceptible Staphylococcus aureus; Z74.01 Bed confinement status; I46.9 Cardiac arrest, cause unspecified; Z20.828 Contact with and (suspected) exposure to other viral communicable diseases; B96.1 Klebsiella pneumoniae [K. pneumoniae] as the cause of diseases classified elsewhere; D50.8 Other iron deficiency anemias; L89.899 Pressure ulcer of other site, unspecified stage; B96.5 Pseudomonas (aeruginosa) (mallei) (pseudomallei) as the cause of diseases classified elsewhere; I25.10 Atherosclerotic heart disease of native coronary artery without angina pectoris; R53.1 Weakness; B96.29 Other Escherichia coli [E. coli] as the cause of diseases classified elsewhere; N18.9 Chronic kidney disease, unspecified; A04.72 Enterocolitis due to Clostridium difficile, not specified as recurrent; L89.154 Pressure ulcer of sacral region, stage 4; E11.65 Type 2 diabetes mellitus with hyperglycemia; Z53.8 Procedure and treatment not carried out for other reasons; R79.89 Other specified abnormal findings of blood chemistry; I12.9 Hypertensive chronic kidney disease with stage 1 through stage 4 chronic kidney disease, or unspecified chronic kidney disease; N39.0 Urinary tract infection, site not specified; J44.9 Chronic obstructive pulmonary disease, unspecified; R13.11 Dysphagia, oral phase; E11.22 Type 2 diabetes mellitus with diabetic chronic kidney disease; L89.629 Pressure ulcer of left heel, unspecified stage; R60.0 Localized edema; N17.8 Other acute kidney failure; I95.89 Other hypotension